=== PATIENT | male | born 1985 | race Two or more races ===

== ENCOUNTER 2019-04-13 08:59 | Emergency (ER) | payer SELFPAY ==
[~2019-04-13] VITALS: Ht 170.2 cm; Wt 85.7 kg
[2019-04-13 09:08] VITALS: BP 106/77
[2019-04-13 09:56] LABS: Urine Bacteria NONE SEEN /hpf (None Seen); Urine Blood Negative /uL (Negative); Urine Mucus FEW (None Seen); Urine Specific Gravity 1.031 (1.001-1.035); Urine WBC <1 /hpf (0 - 3)
== END 2019-04-13 11:02 | disposition home or self-care (01) ==
LOC: ER 09:07
DX: S39.011A Strain of muscle, fascia and tendon of abdomen, initial encounter (principal); X50.0XXA Overexertion from strenuous movement or load, initial encounter; Y93.89 Activity, other specified; Y99.8 Other external cause status; Y92.89 Other specified places as the place of occurrence of the external cause
CPT/HCPCS: 74176; 81001

== ENCOUNTER 2021-12-07 01:12 | Emergency (ER) | payer SELFPAY ==
[~2021-12-07] VITALS: Ht 172.7 cm; Wt 86.2 kg
[2021-12-07 01:12] VITALS: BP 119/94
== END 2021-12-07 04:34 | disposition left against medical advice (07) ==
LOC: ER 01:13
DX: H57.89 Other specified disorders of eye and adnexa (principal); H53.8 Other visual disturbances; Z53.21 Procedure and treatment not carried out due to patient leaving prior to being seen by health care provider

== ENCOUNTER 2022-10-21 02:47 | Emergency (ER) | payer MEDICAID ==
[~2022-10-21] VITALS: Ht 175.3 cm; Wt 83.9 kg
[2022-10-21 03:38] VITALS: BP 134/88
[2022-10-21 03:56] LABS: Urine Bacteria NONE SEEN /hpf (None Seen); Urine Blood Negative /uL (Negative); Urine Specific Gravity 1.013 (1.001-1.035); Urine WBC <1 /hpf (0 - 3)
== END 2022-10-21 08:01 | disposition left against medical advice (07) ==
LOC: ER 02:47
DX: K80.20 Calculus of gallbladder without cholecystitis without obstruction (principal)
CPT/HCPCS: 74176; 81001

== ENCOUNTER 2024-04-21 08:49 | Inpatient (IN) | payer MEDICAID ==
[~2024-04-21] VITALS: Ht 167.6 cm; Wt 77.1 kg
[2024-04-21 09:34] LABS: Urine Bacteria None Seen /hpf (None Seen)
[2024-04-21] MEDS: DONNATAL 5ml ORAL Elix (BELLADONNA ALK-PHENOBARB) PO ONE (09:45)
[2024-04-21 09:46] LABS: Urine Blood Negative /uL (Negative); Urine Clarity Clear (Clear); Urine Color Light-Yellow (Yellow); Urine Mucus FEW (None Seen); Urine Protein, UAD Negative (Negative); Urine Specific Gravity 1.026 (1.001-1.035); Urine Urobilinogen Normal (Negative); Urine WBC 3 /hpf (0 - 3); Urine pH 6.5 (5.0-9.0)
[2024-04-21 10:27] LABS: Basophils # (auto) 0 10 ^3/uL (0-0.2); Basophils % (auto) 0.4 % (0.0-2.0); Eosinophils # (auto) 0.1 10 ^3/uL (0-0.8); Eosinophils % (auto) 1.1 % (0.0-7.0); Hematocrit 47.3 % (41.0-53.0); Lymphocytes # (auto) 1.8 10 ^3/uL (0.4-5.4); Lymphocytes % (auto) 24.1 % (10.0-50.0); Mean Corpuscular Hgb Conc. 33.9 g/dL (32.0-36.0); Mean Corpuscular Volume 91.5 fL (80.0-100.0); Monocytes # (auto) 0.5 10 ^3/uL (0-1.3); Monocytes % (auto) 6.5 % (0.0-12.0); Neutrophils # (auto) 5.1 10 ^3/uL (1.6-8.6); Neutrophils % (auto) 67.9 % (37.0-80.0); Red Blood Cells 5.17 10^6/uL (4.5-5.90); Red Cell Distribution Width 12.8 % (11.8-14.3); White Blood Cell 7.6 10^3/uL (4.4-10.8)
[2024-04-21 10:39] LABS: Alanine Aminotransferase 49 U/L (7-40); Albumin 4.4 g/dL (3.2-4.8); Alkaline Phosphatase 113 U/L (46-116); Anion Gap 5 (5-15); Aspartate Aminotransferase 28 U/L (13-40); BUN/Creatinine Ratio 15.7 (10.0-20.0); Bilirubin, Total 0.3 mg/dL (0.2-1.0); Blood Urea Nitrogen 17 mg/dL (9-23); Calcium 10.1 mg/dL (8.7-10.4); Carbon Dioxide 30 mmol/L (20-30); Chloride 104 mmol/L (98-107); Glucose 110 mg/dL (74-106); Lipase 47 U/L (12-53); Magnesium 2.2 mg/dL (1.6-2.6); Sodium 139 mmol/L (136-145); Total Protein 7.8 g/dL (5.7-8.2)
[2024-04-21] MEDS: SODIUM CHLORIDE 0.9% 500 ML IVB ONE (11:12)
[2024-04-21] MEDS: MAALOX PLUS or MAALOX 30 ML PO ONE (11:13)
[2024-04-21] MEDS: PANTOPRAZOLE 40 MG TAB PO ONE (11:14)
[2024-04-21] MEDS: METOCLOPRAMIDE HCL 5MG/ml INJ 2ml VIAL IV ONE (11:14)
[2024-04-21] MEDS: KETOROLAC TROMETH 30 MG/ML 1ML VIAL IV ONE (11:14)
[2024-04-21 11:21] VITALS: PULSE 71; RESP 16; O2SAT 100
[2024-04-21] MEDS: cefTRIAXone 1GM/50ML D5W 50 ML IV ONE (11:38)
[2024-04-21] MEDS ORDERED: MORPHINE SULFATE INJ 2 MG/ml SYRG IV PRN (13:15)
[2024-04-21] MEDS ORDERED: DOCUSATE SOD 100 MG CAP PO PRN (13:15)
[2024-04-21] MEDS ORDERED: ONDANSETRON HCL 4 MG/2 ML VIAL IV PRN (13:15)
[2024-04-21] MEDS: SODIUM CHLORIDE 0.9% 1,000 ML IV SCH (13:20)
[2024-04-21] MEDS ORDERED: NITROGLYCERIN 0.4 MG SL TAB SL PRN (14:00)
[2024-04-21 14:41] LABS: INR 0.98 (0.9-1.15); Prothrombin Time 10.4 sec (9.3-11.8)
[2024-04-21 17:08] VITALS: BP 132/84; PULSE 60; RESP 18; TEMP 97.9; O2SAT 99
[2024-04-21 18:24] VITALS: PULSE 60; RESP 18; O2SAT 98
[2024-04-21 19:30] VITALS: PULSE 60; RESP 20; O2SAT 100
[2024-04-21 21:00] VITALS: BP 104/58; PULSE 90; RESP 20; TEMP 98.2; O2SAT 100
[2024-04-22] VITALS (8 sets, daily range): BP systolic 96–105; BP diastolic 57–72; PULSE 62–77; RESP 17–20; TEMP 97.7–99.1; O2SAT 98–100
[2024-04-22 06:22] LABS: Basophils # (auto) 0 10 ^3/uL (0-0.2); Basophils % (auto) 0.5 % (0.0-2.0); Eosinophils # (auto) 0.1 10 ^3/uL (0-0.8); Eosinophils % (auto) 1.8 % (0.0-7.0); Hematocrit 43.3 % (41.0-53.0); Hemoglobin 14.7 g/dL (13.5-17.5); Lymphocytes # (auto) 2.3 10 ^3/uL (0.4-5.4); Lymphocytes % (auto) 37.5 % (10.0-50.0); Mean Corpuscular Volume 91.1 fL (80.0-100.0); Monocytes # (auto) 0.4 10 ^3/uL (0-1.3); Neutrophils # (auto) 3.3 10 ^3/uL (1.6-8.6); Neutrophils % (auto) 54.2 % (37.0-80.0); Nucleated Red Blood Cells % 0.1 %; Red Blood Cells 4.75 10^6/uL (4.5-5.90); Red Cell Distribution Width 12.9 % (11.8-14.3); White Blood Cell 6.2 10^3/uL (4.4-10.8)
[2024-04-22 07:03] LABS: Alanine Aminotransferase 38 U/L (7-40); Albumin 3.6 g/dL (3.2-4.8); Alkaline Phosphatase 88 U/L (46-116); Anion Gap 7 (5-15); Aspartate Aminotransferase 22 U/L (13-40); BUN/Creatinine Ratio 11.2 (10.0-20.0); Bilirubin, Total 0.5 mg/dL (0.2-1.0); Blood Urea Nitrogen 10 mg/dL (9-23); Calcium 8.7 mg/dL (8.7-10.4); Carbon Dioxide 25 mmol/L (20-30); Chloride 107 mmol/L (98-107); Glucose 94 mg/dL (74-106); Potassium 4.2 mmol/L (3.5-5.1); Sodium 139 mmol/L (136-145); Total Protein 6.4 g/dL (5.7-8.2)
[2024-04-22] MEDS: PIPERACILLIN-TAZOB 3.375GM 100 ML IV ONE ×2 (14:07→22:55)
[2024-04-22] MEDS ORDERED: PIPERACILLIN-TAZOB 3.375GM 100 ML IV SCH (22:00)
[2024-04-22] MEDS ORDERED: MORPHINE SULFATE INJ 2 MG/ml SYRG IV PRN (22:15)
[2024-04-22] MEDS ORDERED: DOCUSATE SOD 100 MG CAP PO PRN (22:15)
[2024-04-22] MEDS ORDERED: NITROGLYCERIN 0.4 MG SL TAB SL PRN (22:15)
[2024-04-22] MEDS: SODIUM CHLORIDE 0.9% 1,000 ML IV SCH (22:15)
[2024-04-22] MEDS ORDERED: ONDANSETRON HCL 4 MG/2 ML VIAL IV PRN (22:15)
[2024-04-23 01:00] VITALS: BP 110/69; PULSE 64; RESP 18; TEMP 97.6; O2SAT 98
[2024-04-23 05:00] VITALS: BP 104/60; PULSE 69; RESP 17; TEMP 97.9; O2SAT 99
[2024-04-23] MEDS: PIPERACILLIN-TAZOB 3.375GM 100 ML IV SCH (05:26)
[2024-04-23 08:00] VITALS: PULSE 100; RESP 17; O2SAT 100
[2024-04-23] MEDS ORDERED: PROPOFOL 10 MG/ML 20 ML IV ONE (08:09)
[2024-04-23] MEDS ORDERED: SODIUM CHLORIDE LOCK 0 ML ONE (08:09)
[2024-04-23] MEDS ORDERED: DexAMETHasone SOD PHOS 10MG/1ML VIAL INJ ONE (08:09)
[2024-04-23] MEDS ORDERED: GLYCOPYRROLATE 0.2 MG/ML 1ML VIAL ONE (08:09)
[2024-04-23] MEDS ORDERED: MIDAZOLAM HCL 2MG/2ML 2ml VIAL (1mg/ml) ONE (08:09)
[2024-04-23] MEDS ORDERED: LIDOCAINE 1% INJ PF 5ML AMP ONE (08:09)
[2024-04-23] MEDS ORDERED: LIDOCAINE HCL 2% TOP JELLY 5ML TOP ONE (08:09)
[2024-04-23] MEDS ORDERED: ROCURONIUM 10MG/ML 10ML VIAL IV ONE (08:09)
[2024-04-23] MEDS ORDERED: NEOSTIGMINE 1 MG/ML INJ (10mg/10ML VIAL) ONE (08:09)
[2024-04-23] MEDS ORDERED: fentaNYL CITRATE 100 MCG/2 ML VL ONE (08:09)
[2024-04-23] MEDS ORDERED: KETAMINE 50mg/ML 1ml syringe ONE (08:09)
[2024-04-23] MEDS ORDERED: ONDANSETRON HCL 4 MG/2 ML VIAL ONE (08:09)
[2024-04-23] MEDS ORDERED: MEPERIDINE HCL (50 MG/ML) 1 ML VIAL ONE (08:09)
[2024-04-23 09:00] VITALS: BP 106/79; PULSE 100; RESP 17; TEMP 98.1; O2SAT 100
== END 2024-04-23 11:20 | disposition left against medical advice (07) ==
LOC: ER 08:49 → OVERFLOW 13:48 → TELE-E-ADS 17:10 → EAST 04-22 04:23 → UNDODISIN 04-22 15:25
PROVIDERS: ADMIT Student in an Organized Health Care Education/Training Program; ATTEND Emergency Medicine
DX: K80.00 Calculus of gallbladder with acute cholecystitis without obstruction (principal); F17.200 Nicotine dependence, unspecified, uncomplicated; Z53.29 Procedure and treatment not carried out because of patient's decision for other reasons
CPT/HCPCS: 36415; 76705; 80053; 81001; 83690; 83735; 85025; 85610; 86850; 86900; 86901; G0378; J1100; J1885; J2250; J2405; J2543; J2704

== ENCOUNTER 2024-10-10 04:09 | Emergency (ER) | payer MEDICAID ==
[~2024-10-10] VITALS: Ht 172.7 cm; Wt 76.6 kg
[2024-10-10] MEDS ORDERED: SODIUM CHLORIDE 0.9% 1,000 ML IV ONE (04:45)
[2024-10-10] MEDS ORDERED: MORPHINE SULFATE 4 MG/ML SYR/VIAL IV ONE (04:45)
[2024-10-10] MEDS ORDERED: ONDANSETRON HCL 4 MG/2 ML VIAL IV ONE (04:45)
[2024-10-10] MEDS ORDERED: PANTOPRAZOLE 40 MG/10 ML VIAL INJ IV ONE (04:45)
--- NOTE | 2024-10-10 04:53 | ED.PDOC ---
History of Present Illness HPI Comments 39 y/o M presents with c/o non-radiating, epigastric abdominal pain and nausea that began at 0330, today. Patient is a [place] speaker and endorses on symptoms onset being sudden and unprovoked. He comments on having similar pain in the past with "gallstones," with most last episode taking place 1x month ago. Patient reports no recent strenuous activities, injuries, spoiled or irritable food intake, or any further relevant or pertinent information. He denies having any vomiting, diarrhea, fever, chills, urinary symptoms, or other associated symptoms or modifiers at this time. Per previous hospital discharge summary report on 04/23/24, patient has a Hx of acute cholecystitis d/t cholelithiasis and tobacco use. Chief Complaint: Abdominal Pain Time Seen by MD: 04:35 Primary Care Provider: ADALBERTO Reviewed Notes: Nurses Notes, Medications, Allergies Allergies: Coded Allergies: NO KNOWN ALLERGIES (Unverified , 04/13/19) Home Meds No Active Prescriptions or Reported Meds Information Source: Patient Mode of Arrival: Ambulatory Severity: Moderate Timing: Hours Duration: Since onset Prehospital treatment: None Past Medical History PAST MEDICAL HISTORY: Gallstones Past Medical History (Other): acute cholecystitis due to cholelithiasis Surgical History: Denies all surgeries Family History Family History: Unknown Social History Smoker: Cigarettes Alcohol: Denies ETOH Use Drugs: Denies Drug Use Lives In: Home Gastrointestinal: reports: abdominal pain, nausea All Other Systems: Reviewed and Negative (negative unless otherwise stated above or in HPI) Physical Exam General Appearance: No Apparent Distress, Normal HEENT: Normal ENT Inspection, Pharynx Normal, TMs Normal Neck: Full Range of Motion, Non-Tender, Normal, Normal Inspection Respiratory: Chest Non-Tender, Lungs Clear, No Accessory Muscle Use, No Respiratory Distress, Normal Breath Sounds Cardiovascular: No Edema, No JVD, No Murmur, No Gallop, Normal Peripheral Pulses, Regular Rate/Rhythm Breast Exam: Deferred Gastrointestinal: Epigastric (tenderness), No Organomegaly, No Pulsatile Mass, Normal Bowel Sounds, Soft, Tenderness (epigastric region ) Genitalia: Deferred Pelvic: Deferred Rectal: Deferred Extremities: No calf tenderness, Normal capillary refill, Normal inspection, Normal range of motion, Non-tender, No pedal edema Musculoskeletal : Apperance: Normal Neurologic: Alert, mower operator II-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 Was a procedure done?: No Differential Dx Considerations may include: cholelithiasis, cholecystitis, GERD, PUD, gastritis, gastroenteritis, spoiled food, viral syndrome, acute abdomen X-Ray, Labs, Meds, VS Vital Signs Date Time Temp Pulse Resp B/P (MAP) Pulse Ox O2 Delivery O2 Flow Rate FiO2 10/10/24 05:09 97.5 75 18 133/91 (105) 98 97.5 10/10/24 04:28 97.6 86 20 141/94 (110) 99 Lab Test 10/10/24 05:33 Range/Units White Blood Count 6.7 4.4-10.8 10^3/uL Red Blood Count 4.87 4.5-5.90 10^6/uL Hemoglobin 15.2 13.5-17.5 g/dL Hematocrit 43.8 41.0-53.0 % Mean Corpuscular Volume 90.1 80.0-100.0 fL Mean Corpuscular Hemoglobin 31.2 28.0-32.0 pg Mean Corpuscular Hemoglobin Concent 34.6 32.0-36.0 g/dL Red Cell Distribution Width 13.2 11.8-14.3 % Platelet Count 299 140-450 10^3/uL Mean Platelet Volume 6.8 L 6.9-10.8 fL Neutrophils (%) (Auto) 70.0 37.0-80.0 % Lymphocytes (%) (Auto) 21.9 10.0-50.0 % Monocytes (%) (Auto) 6.4 0.0-12.0 % Eosinophils (%) (Auto) 1.2 0.0-7.0 % Basophils (%) (Auto) 0.5 0.0-2.0 % Neutrophils # (Auto) 4.7 1.6-8.6 10 ^3/uL Lymphocytes # (Auto) 1.5 0.4-5.4 10 ^3/uL Monocytes # (Auto) 0.4 0-1.3 10 ^3/uL Eosinophils # (Auto) 0.1 0-0.8 10 ^3/uL Basophils # (Auto) 0 0-0.2 10 ^3/uL Nucleated Red Blood Cells 0.0 % Sodium Level 136 136-145 mmol/L Potassium Level 3.8 3.5-5.1 mmol/L Chloride Level 103 98-107 mmol/L Carbon Dioxide Level 30 20-31 mmol/L Anion Gap 3 L 5-15 Blood Urea Nitrogen 17 9-23 mg/dL Creatinine 1.02 0.700-1.30 mg/dL Glomerular Filtration Rate Calc 95 >90 mL/min BUN/Creatinine Ratio 16.7 10.0-20.0 Serum Glucose 120 H 74-106 mg/dL Calcium Level 9.4 8.7-10.4 mg/dL Total Bilirubin 0.4 0.2-1.0 mg/dL Aspartate Amino Transferase (AST) 36 13-40 U/L Alanine Aminotransferase (ALT) 42 H 7-40 U/L Alkaline Phosphatase 110 46-116 U/L Total Protein 7.2 5.7-8.2 g/dL Albumin 4.3 3.2-4.8 g/dL Lipase 41 12-53 U/L [place] [id number] Ph: [phone] DIAGNOSTIC IMAGING Diagnostic Imaging Report : [id number] Signed PATIENT: ISAAC MCCLAIN ACCT: [id number] UNIT: [id number] : 1985 LOC: ER ROOM / BED: / AGE / SEX: 39 / M ADM STATUS: REG ER SERVICE 6 ORDERING PHYSICIAN: MEGAN ARRIAGA MD PROCEDURE(s): CXR2 - CHEST TWO VIEWS ROUTINE REASON: epigastric pain ORDER NUMBER(s): [id number], ACCESSION NUMBER(s): [id number] CHEST TWO VIEWS ROUTINE CLINICAL HISTORY: epigastric pain COMPARISON: None TECHNIQUE: Frontal and lateral view of the chest was obtained FINDINGS: Lines and Tubes: None Lungs: No focal consolidation. Pleura: No effusion. No pneumothorax. Cardiomediastinal contours: Unremarkable Bones: No acute osseous abnormality. IMPRESSION: 1. No acute cardiopulmonary disease. ATED BY: ANAHI RIVAS MD DICTATED DATE/TIME: 10/10/24 045 SIGNED BY: ANAHI RIVAS MD SIGNED DATE/TIME: 10/10/24 0458 CC: Time of 1ST Reevaluation: 05:05 Reevaluation 1ST: Unchanged Patient Education/Counseling: Diagnosis, Treatment Family Education/Counseling: No Family Present Additional Information I reviewed the following notes from patient's past medical encounters: ED physician note on 10/21/22 and 04/21/24 and hospital admission discharge summary report on 04/23/24 The following tests were ordered, and results were reviewed by me: CXR, lipase, CMP. CBC I reviewed and agreed with the following test results read by other providers: CXR I discussed treatment and results with medical personnel Departure 1 Departure Time of Disposition: 05:38 (Patient presented with abdominal pain that was concerning for possible appendicits, gastritis, cholecystitis, colitis, gastroenteritis, sbo, or orther possible surgical emergency. Data: 1. I ordered and reviewed the result of at least 3 labs including a CBC, BMP, and Urinalysis. 2. I independently interpreted the following tests: Ultrasound is concerning for acute cholecystitis .Risk:This patient has a high risk of morbidity due to further diagnostic testing or treatment and may suffer from an acute abdominal process disorder. Workup reveals acute cholecystitis and patient should be admitted for further workup. and possible expert consultation. Patient appare ntly eloped) Impression: Primary Impression: Acute cholecystitis Additional Impression: Intractable abdominal pain Disposition: 07 LEFT AWOL/ELOPED Condition: Guarded e-Prescriptions No Active Prescriptions or Reported Meds Critical Care Note Critical Care Time?: Yes Critical care comment: Intractable abdominal pain with the acute cholecystitis Authorized and Performed by: Megan Arriaga MD Total critical care time: Approximately 39 minutes Due to a high probability of clinically significant, life threatening deterioration, the patient required my highest level of preparedness to intervene emergently and I personally spent this critical care time directly and personally managing the patient. This critical care time included obtaining a history; examining the patient; pulse oximetry; ordering and review of studies; arranging urgent treatment with development of a management plan; evaluation of patient's response to treatment; frequent reassessment; and, discussions with other providers. This critical care time was performed to assess and manage the high probability of imminent, life-threatening deterioration that could result in multi-organ failure. It was exclusive of separately billable procedures and treating other patients and teaching time. Please see my other sections and the rest of the note for further information on patient assessment and treatment. Stability Stability form required: No Heart Score Heart Score: Heart Score Response (Comments) Value History N/A 0 EKG N/A 0 Age N/A 0 Risk Factors N/A 0 Troponin N/A 0 Total 0 I personally scribed for MEGAN ARRIAGA MD ([email or web address]) on 10/10/24 at 04:53. Electronically submitted by Da Montejo ([email or web address]). I personally scribed for MEGAN ARRIAGA MD ([email or web address]) on 10/10/24 at 05:28. Electronically submitted by Da Montejo ([email or web address]). MEGAN ARRIAGA MD Oct 10, 2024 04:53
--- NOTE | 2024-10-10 05:01 | DVH ---
XY CHEST TWO VIEWS ROUTINE CLINICAL HISTORY: epigastric pain COMPARISON: None TECHNIQUE: Frontal and lateral view of the chest was obtained FINDINGS: Lines and Tubes: None Lungs: No focal consolidation. Pleura: No effusion. No pneumothorax. Cardiomediastinal contours: Unremarkable Bones: No acute osseous abnormality. IMPRESSION: 1. No acute cardiopulmonary disease.
[2024-10-10 05:09] VITALS: BP 133/91; PULSE 75; RESP 18; TEMP 97.5; O2SAT 98
[2024-10-10 05:51] LABS: Basophils # (auto) 0 10 ^3/uL (0-0.2); Basophils % (auto) 0.5 % (0.0-2.0); Eosinophils # (auto) 0.1 10 ^3/uL (0-0.8); Eosinophils % (auto) 1.2 % (0.0-7.0); Hematocrit 43.8 % (41.0-53.0); Hemoglobin 15.2 g/dL (13.5-17.5); Lymphocytes # (auto) 1.5 10 ^3/uL (0.4-5.4); Lymphocytes % (auto) 21.9 % (10.0-50.0); Mean Corpuscular Hemoglobin 31.2 pg (28.0-32.0); Mean Corpuscular Hgb Conc. 34.6 g/dL (32.0-36.0); Mean Corpuscular Volume 90.1 fL (80.0-100.0); Monocytes # (auto) 0.4 10 ^3/uL (0-1.3); Monocytes % (auto) 6.4 % (0.0-12.0); Neutrophils # (auto) 4.7 10 ^3/uL (1.6-8.6); Platelet Count (auto) 299 10^3/uL (140-450); Red Blood Cells 4.87 10^6/uL (4.5-5.90); Red Cell Distribution Width 13.2 % (11.8-14.3); White Blood Cell 6.7 10^3/uL (4.4-10.8)
[2024-10-10 06:12] LABS: Albumin 4.3 g/dL (3.2-4.8); Alkaline Phosphatase 110 U/L (46-116); Anion Gap 3 (5-15); Aspartate Aminotransferase 36 U/L (13-40); BUN/Creatinine Ratio 16.7 (10.0-20.0); Bilirubin, Total 0.4 mg/dL (0.2-1.0); Blood Urea Nitrogen 17 mg/dL (9-23); Calcium 9.4 mg/dL (8.7-10.4); Carbon Dioxide 30 mmol/L (20-31); Chloride 103 mmol/L (98-107); Lipase 41 U/L (12-53); Potassium 3.8 mmol/L (3.5-5.1); Sodium 136 mmol/L (136-145); Total Protein 7.2 g/dL (5.7-8.2)
[2024-10-10 06:20] LABS: Alanine Aminotransferase 42 U/L (7-40); Glucose 120 mg/dL (74-106)
--- NOTE | 2024-10-10 06:47 | DVH ---
INDICATION: ruq pain TECHNIQUE: Multiple real-time sonographic images of the abdomen were obtained. COMPARISON: US GALLBLADDER on DOS: 04/21/24 FINDINGS: The liver is homogenous in echogenicity. The liver measures 17.3 cm. No intrahepatic bilia ry ductal dilatation is noted. The gallbladder wall measures 0.7 cm. Common tail artifact noted. There are gallstones. The common duct measures 0.4 cm and is unremarkable. No pericholecystic fluid is noted. Positive sonographic M urphy's sign. The right kidney measures 10.7 cm. No hydronephrosis. The pancreas is not well visualized due to obscuration from bowel gas. The visualized portions of the IVC and aorta are grossly unremarkable. No free fluid in the right upper quadrant. IMPRESSION: 1. Gallstones, gallbladder wall thickening and positive Colon's sign suspicious for acute cholecysti tis. Additionally, Adenomyomatosis of the gallbladder. 2. Normal sonographic appearance of the liver and right kidney.
== END 2024-10-10 07:15 | disposition left against medical advice (07) ==
LOC: ER 04:09
DX: R10.13 Epigastric pain (principal); R11.0 Nausea; F17.210 Nicotine dependence, cigarettes, uncomplicated
CPT/HCPCS: 36415; 71046; 76705; 80053; 83690; 85025

== ENCOUNTER 2024-10-10 14:56 | Inpatient (IN) | payer MEDICAID ==
[~2024-10-10] VITALS: Ht 172.7 cm; Wt 84.0 kg
--- NOTE | 2024-10-10 15:35 | ED.PDOC ---
GI ASSESSMENT HPI Comments 39 y/o M with PMHX of cholelithiasis presents to the ED for CC of abdominal pain. Patient states that he has been experiencing epigastric abdominal pain with associated symptoms of nausea since 0230 today (10/09/24). Patient comments on current 9/10 pain that worsens with light exertion. Patient states on having similar symptoms in the past due to cholelithiasis; patient refused removal of the gallbladder in 2023. Patient was seen at [facility] today (10/10/24) and [facility]. Patient smokes tobacco and marijuana and takes methamphetamines; denies alcohol consumption. Patient denies fever, chills, body-aches, or diarrhea. No other symptoms or modifying factors at this time. Chief Complaint: Abdominal Pain Time Seen by MD: 15:20 Primary Care Provider: ADALBERTO Reviewed Notes: Nurses Notes, Medications, Allergies Allergies: Coded Allergies: NO KNOWN ALLERGIES (Unverified , 04/13/19) Home Meds No Active Prescriptions or Reported Meds Information Source: Patient Mode of Arrival: Ambulatory Timing: Hours Duration: Since onset Prehospital treatment: None Quality: Cramping Vomitus: None Stool: Normal Severity: Mild Recent: None Recent Hx of: None Pain Location: Epigastric Modifying Factors: Nothing Associated sign and symptoms: Nausea Past Medical History PAST MEDICAL HISTORY: Gallstones Surgical History: Denies all surgeries Family History Family History: Unknown Social History Smoker: Cigarettes Alcohol: Denies ETOH Use Drugs: Marijuana, Methamphetamine Lives In: Home Constitutional: denies: chills, diaphoresis, fatigue, fever, malaise, sweats, weakness, others EENTM: denies: blurred vision, double vision, ear bleeding, ear discharge, ear drainage, ear pain, ear ringing, eye pain, eye redness, hearing loss, mouth pain, mouth swelling, nasal discharge, nose bleeding, nose congestion, nose pain, photophobia, tearing, throat pain, throat swelling, voice changes, others Respiratory: denies: cough, hemoptysis, orthopnea, SOB at rest, shortness of breath, SOB with excertion, stridor, wheezing, others Cardiovascular: denies: chest pain, dizzy spells, diaphoresis, Dyspnea on exertion, edema, irregular heart beat, left arm pain, lightheadedness, palpitations, PND, syncope, others Gastrointestinal: reports: abdominal pain, nausea; denies: abdomen distended, blood streaked bowels, constipated, diarrhea, dysphagia, difficulty swallowing, hematemesis, melena, poor appetite, poor fluid intake, rectal bleeding, rectal pain, vomiting, others Genitourinary: denies: burning, dysuria, flank pain, frequency, hematuria, incontinence, penile discharge, penile sore, pain, testicle pain, testicle swelling, urgency, others Neurological: denies: dizziness, fainting, headache, left sided numbness, left sided weakness, numbness, paresthesia, pre-existing deficit, right sided numbness, right sided weakness, seizure, speech problems, tingling, tremors, weakness, others Musculoskeletal: denies: back pain, gout, joint pain, joint swelling, muscle pain, muscle stiffness, neck pain, others Integumetry: denies: bruises, change in color, change in hair/nails, dryness, laceration, lesions, lumps, rash, wounds, others Allergic/Immunocompromised: denies: Difficulty Healing, Frequent Infections, Hives, Itching, others Hematologic/Lymphatic: denies: anemia, blood clots, easy bleeding, easy bruising, swollen glands, others Endocrine: denies: excessive hunger, excessive sweating, excessive thirst, excessive urination, flushing, intolerance to cold, intolerance to heat, unexplained weight gain, unexplained weight loss, others Psychiatric: denies: anxiety, bipolar disorder, depression, hopeless, panic d isorder, schizophrenia, sleepless, suicidal, others All Other Systems: Reviewed and Negative Physical Exam General Appearance: Moderate Distress HEENT: Normal ENT Inspection, Pharynx Normal, TMs Normal Neck: Full Range of Motion, Non-Tender, Normal, Normal Inspection Respiratory: Chest Non-Tender, Lungs Clear, No Accessory Muscle Use, No Respiratory Distress, Normal Breath Sounds Cardiovascular: No Edema, No JVD, No Murmur, No Gallop, Normal Peripheral Pulses, Regular Rate/Rhythm Breast Exam: Deferred Gastrointestinal: Epigastric, No Organomegaly, No Pulsatile Mass, Normal Bowel Sounds, Soft, Tenderness Genitalia: Deferred Pelvic: Deferred Rectal: Deferred Extremities: No calf tenderness, Normal capillary refill, Normal inspection, Normal range of motion, Non-tender, No pedal edema Musculoskeletal : Apperance: Normal Neurologic: Alert, professor 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 Was a procedure done?: No GI differential Dx Differential Diagnosis: Cholangitis, Cholecystitis, Gastritis/PUD, Gastroe nteritis, Drug toxicity, Electrolyte Imbalance, Food Poisoning, Bacterial, Viral X-Ray, Labs, Meds, VS Vital Signs Date Time Temp Pulse Resp B/P (MAP) Pulse Ox O2 Delivery O2 Flow Rate FiO2 10/10/24 15:17 97.9 102 18 124/77 (93) 97 Lab Test 10/10/24 16:12 10/10/24 16:02 Range/Units Urine Color Yellow Yellow Urine Clarity Clear Clear Urine pH 5.5 5.0-9.0 Urine Specific [place] 1.027 1.001-1.035 Urine Protein Trace H Negative Urine Ketones Trace Negative Urine Blood Negative Negative /uL Urine Nitrite Negative Negative Urine Bilirubin Negative Negative Urine Urobilinogen Normal Negative mg/dL Urine Leukocyte Esterase Negative Negative /uL Urine RBC 1 0 - 3 /hpf Urine Microscopic WBC 1 0-3 /HPF Urine Squamous Epithelial Cells Few <5 /hpf Urine Bacteria None seen None Seen /hpf Urine Mucus Few None Seen Urine Glucose Normal Normal mg/dL White Blood Count 6.3 4.4-10.8 10^3/uL Red Blood Count 4.85 4.5-5.90 10^6/uL Hemoglobin 14.6 13.5-17.5 g/dL Hematocrit 43.9 41.0-53.0 % Mean Corpuscular Volume 90.4 80.0-100.0 fL Mean Corpuscular Hemoglobin 30.1 28.0-32.0 pg Mean Corpuscular Hemoglobin Concent 33.3 32.0-36.0 g/dL Red Cell Distribution Width 13.0 11.8-14.3 % Platelet Count 274 140-450 10^3/uL Mean Platelet Volume 6.8 L 6.9-10.8 fL Neutrophils (%) (Auto) 67.0 37.0-80.0 % Lymphocytes (%) (Auto) 23.8 10.0-50.0 % Monocytes (%) (Auto) 6.9 0.0-12.0 % Eosinophils (%) (Auto) 1.8 0.0-7.0 % Basophils (%) (Auto) 0.5 0.0-2.0 % Neutrophils # (Auto) 4.2 1.6-8.6 10 ^3/uL Lymphocytes # (Auto) 1.5 0.4-5.4 10 ^3/uL Monocytes # (Auto) 0.4 0-1.3 10 ^3/uL Eosinophils # (Auto) 0.1 0-0.8 10 ^3/uL Basophils # (Auto) 0 0-0.2 10 ^3/uL Nucleated Red Blood Cells 0.0 % Sodium Level Pending Potassium Level Pending Chloride Level Pending Carbon Dioxide Level Pending Anion Gap Pending Blood Urea Nitrogen Pending Creatinine Pending Glomerular Filtration Rate Calc Pending BUN/Creatinine Ratio Pending Serum Glucose Pending Calcium Level Pending Total Bilirubin Pending Aspartate Amino Transferase (AST) Pending Alanine Aminotransferase (ALT) Pending Alkaline Phosphatase Pending Total Protein Pending Albumin Pending Lipase Pending The patient's CBC is within normal limits The patient had an ultrasound done of the gallbladder earlier today which showed cholelithiasis with possible cholecystitis The patient was being given Protonix 40 mg IV push The patient was being admitted at this time. The patient was intractable abdominal pain with a possible cholecystitis A GI consult will be obtained. Images Reviewed?: Images reviewed and evaluated by me Time of 1ST Reevaluation: 15:50 Reevaluation 1ST: Unchanged Patient Education/Counseling: Diagnosis, Treatment, Prognosis Family Education/Counseling: No Family Present Departure 1 Departure Time of Disposition: 16:37 Impression: Primary Impression: Intractable abdominal pain Additional Impression: Acute cholecystitis Disposition: 09 ADMITTED INPATIENT Admit to: Med Surg Condition: Fair e-Prescriptions No Active Prescriptions or Reported Meds Critical Care Note Critical Care Time?: No Stability Stability form required: Yes Unstable for transfer: ED Physician Assesment (Clinical assesment) Heart Score Heart Score: Heart Score Response (Comments) Value History N/A 0 EKG N/A 0 Age N/A 0 Risk Factors N/A 0 Troponin N/A 0 Total 0 I personally scribed for ULISSES RABAGO MD ([email or web address]) on 10/10/24 at 15:35. Electronically submitted by Araceli Waite ([email or web address]). I personally scribed for ULISSES RABAGO MD ([email or web address]) on 10/10/24 at 15:42. Electronically submitted by Araceli Waite ([email or web address]). ULISSES RABAGO MD Oct 10, 2024 15:35
[2024-10-10 16:13] LABS: Urine Bacteria None Seen /hpf (None Seen)
[2024-10-10 16:17] LABS: Basophils # (auto) 0 10 ^3/uL (0-0.2); Basophils % (auto) 0.5 % (0.0-2.0); Eosinophils # (auto) 0.1 10 ^3/uL (0-0.8); Eosinophils % (auto) 1.8 % (0.0-7.0); Hematocrit 43.9 % (41.0-53.0); Hemoglobin 14.6 g/dL (13.5-17.5); Lymphocytes # (auto) 1.5 10 ^3/uL (0.4-5.4); Lymphocytes % (auto) 23.8 % (10.0-50.0); Mean Corpuscular Hemoglobin 30.1 pg (28.0-32.0); Mean Corpuscular Hgb Conc. 33.3 g/dL (32.0-36.0); Mean Corpuscular Volume 90.4 fL (80.0-100.0); Monocytes # (auto) 0.4 10 ^3/uL (0-1.3); Monocytes % (auto) 6.9 % (0.0-12.0); Neutrophils # (auto) 4.2 10 ^3/uL (1.6-8.6); Platelet Count (auto) 274 10^3/uL (140-450); Red Blood Cells 4.85 10^6/uL (4.5-5.90); White Blood Cell 6.3 10^3/uL (4.4-10.8)
[2024-10-10 16:27] LABS: Urine Blood Negative /uL (Negative); Urine Clarity Clear (Clear); Urine Color Yellow (Yellow); Urine Mucus FEW (None Seen); Urine Protein, UAD TRACE (Negative); Urine Specific Gravity 1.027 (1.001-1.035); Urine Squamous Epithelial Cell FEW /hpf (<5); Urine Urobilinogen Normal (Negative); Urine WBC 1 /HPF (0-3); Urine pH 5.5 (5.0-9.0)
[2024-10-10 16:41] LABS: Albumin 4.3 g/dL (3.2-4.8); Alkaline Phosphatase 104 U/L (46-116); Anion Gap 4 (5-15); Aspartate Aminotransferase 32 U/L (13-40); BUN/Creatinine Ratio 14.8 (10.0-20.0); Bilirubin, Total 0.4 mg/dL (0.2-1.0); Blood Urea Nitrogen 17 mg/dL (9-23); Carbon Dioxide 30 mmol/L (20-31); Chloride 107 mmol/L (98-107); Glucose 72 mg/dL (74-106); Lipase 36 U/L (12-53); Potassium 3.7 mmol/L (3.5-5.1); Sodium 141 mmol/L (136-145); Total Protein 7.1 g/dL (5.7-8.2)
[2024-10-10 16:42] LABS: Alanine Aminotransferase 40 U/L (7-40)
[2024-10-10] MEDS: SODIUM CHLORIDE 0.9% 500 ML IVB ONE (16:45)
[2024-10-10] MEDS: ONDANSETRON HCL 4 MG/2 ML VIAL IV ONE (16:59)
[2024-10-10] MEDS: PANTOPRAZOLE 40 MG/10 ML VIAL INJ IV ONE (16:59)
[2024-10-10] MEDS ORDERED: ONDANSETRON HCL 4 MG/2 ML VIAL IV PRN (19:45)
[2024-10-10 20:16] LABS: INR 0.98 (0.9-1.15); Partial Thromboplastin Time 27.1 SEC (24.5-34.5); Prothrombin Time 10.4 sec (9.3-11.8)
[2024-10-10] MEDS: cefTRIAXone 1GM/50ML D5W 50 ML IV ONE (21:00)
--- NOTE | 2024-10-10 21:33 | DVHHP2 ---
History of Present Illness Reason for Visit: Abdominal pain History of Present Illness 39-year-old male presents for evaluation of abdominal pain. Patient reports being diagnosed with cholecystitis yesterday but decided to leave against medical advice. Today he returns with complaints of constant epigastric abdominal pain that radiates occasionally to his right upper quadrant with associated nausea and vomiting. With denies fever or chills. Denies diarrhea. No other acute complaints reported. Past Medical History Gallstones Past Surgical History Denies Family History Noncontributory Smoke: <1 pack per day ALCOHOL: none Drugs: Marijuana Lives: with Family Review of Systems Review of Systems Review of systems are currently negative otherwise addressed in HPI. Allergies: Coded Allergies: NO KNOWN ALLERGIES (Unverified , 04/13/19) Medications Current Medications Medications Dose Ordered Sig/Sinai Route Start Time Stop Time Status Last Admin Dose Admin Ceftriaxone Sodium 50 ml @ 100 mls/hr DAILY@09 IV 10/11/24 09:00 Metronidazole 100 ml @ 100 mls/hr Q8HR IV 10/10/24 22:00 Ondansetron HCl 4 mg Q4HP PRN IV 10/10/24 19:45 Morphine Sulfate 2 mg Q4HPRN PRN IV 10/10/24 19:45 Exam Vital Signs Vital Signs Date Time Temp Pulse Resp B/P (MAP) Pulse Ox O2 Delivery O2 Flow Rate FiO2 10/10/24 16:46 94 12 99 Room Air 10/10/24 16:46 98.2 94/35 (54) 98.2 Exam Gen: 39-year-old male in mild distress Skin: Warm, dry, normal color and texture, no rash. HEENT: Normocephalic atraumatic, mucous membranes moist and pink. Neck: Cervical and supraclavicular nodes normal without enlargement, trachea is midline, thyroid gland is normal without masses. Pulmonary: Clear to auscultation and percussion bilaterally. Cardiac: Regular rate and rhythm. No murmur Abdomen: Soft, epigastric pain, nondistended, bowel sounds present all 4 quadrants, no guarding, no rigidity, no organomegaly. Extremities: No cyanosis, clubbing, no edema Neuro: Cranial nerves II through XII grossly intact, normal affect and speech, no focal motor deficits. Labs/Xrays ORDERING PHYSICIAN: MEGAN ARRIAGA MD PROCEDURE(s): CXR2 - CHEST TWO VIEWS ROUTINE REASON: epigastric pain ORDER NUMBER(s): [id number], ACCESSION NUMBER(s): [id number] CHEST TWO VIEWS ROUTINE CLINICAL HISTORY: epigastric pain COMPARISON: None TECHNIQUE: Frontal and lateral view of the chest was obtained FINDINGS: Lines and Tubes: None Lungs: No focal consolidation. Pleura: No effusion. No pneumothorax. Cardiomediastinal contours: Unremarkable Bones: No acute osseous abnormality. IMPRESSION: 1. No acute cardiopulmonary disease. RING PHYSICIAN: MEGAN ARRIAGA MD PROCEDURE(s): GBUS - GALLBLADDER REASON: ruq pain ORDER NUMBER(s): [id number], ACCESSION NUMBER(s): [id number] INDICATION: ruq pain TECHNIQUE: Multiple real-time sonographic images of the abdomen were obtained. COMPARISON: US GALLBLADDER on DOS: 04/21/24 FINDINGS: The liver is homogenous in echogenicity. The liver measures 17.3 cm. No intrahepatic biliary ductal dilatation is noted. The gallbladder wall measures 0.7 cm. Common tail artifact noted. There are gallstones. The common duct measures 0.4 cm and is unremarkable. No pericholecystic fluid is noted. Positive sonographic Colon's sign. The right kidney measures 10.7 cm. No hydronephrosis. The pancreas is not well visualized due to obscuration from bowel gas. The visualized portions of the IVC and aorta are grossly unremarkable. No free fluid in the right upper quadrant. IMPRESSION: 1. Gallstones, gallbladder wall thickening and positive Colon's sign suspicious for acute cholecystitis. Additionally, Adenomyomatosis of the gallbladder. 2. Normal sonographic appearance of the liver and right kidney. Labs Test 10/10/24 16:12 10/10/24 16:02 Range/Units Urine Color Yellow Yellow Urine Clarity Clear Clear Urine pH 5.5 5.0-9.0 Urine Specific [place] 1.027 1.001-1.035 Urine Protein Trace H Negative Urine Ketones Trace Negative Urine Blood Negative Negative /uL Urine Nitrite Negative Negative Urine Bilirubin Negative Negative Urine Urobilinogen Normal Negative mg/dL Urine Leukocyte Esterase Negative Negative /uL Urine RBC 1 0 - 3 /hpf Urine Microscopic WBC 1 0-3 /HPF Urine Squamous Epithelial Cells Few <5 /hpf Urine Bacteria None seen None Seen /hpf Urine Mucus Few None Seen Urine Glucose Normal Normal mg/dL White Blood Count 6.3 4.4-10.8 10^3/uL Red Blood Count 4.85 4.5-5.90 10^6/uL Hemoglobin 14.6 13.5-17.5 g/dL Hematocrit 43.9 41.0-53.0 % Mean Corpuscular Volume 90.4 80.0-100.0 fL Mean Corpuscular Hemoglobin 30.1 28.0-32.0 pg Mean Corpuscular Hemoglobin Concent 33.3 32.0-36.0 g/dL Red Cell Distribution Width 13.0 11.8-14.3 % Platelet Count 274 140-450 10^3/uL Mean Platelet Volume 6.8 L 6.9-10.8 fL Neutrophils (%) (Auto) 67.0 37.0-80.0 % Lymphocytes (%) (Auto) 23.8 10.0-50.0 % Monocytes (%) (Auto) 6.9 0.0-12.0 % Eosinophils (%) (Auto) 1.8 0.0-7.0 % Basophils (%) (Auto) 0.5 0.0-2.0 % Neutrophils # (Auto) 4.2 1.6-8.6 10 ^3/uL Lymphocytes # (Auto) 1.5 0.4-5.4 10 ^3/uL Monocytes # (Auto) 0.4 0-1.3 10 ^3/uL Eosinophils # (Auto) 0.1 0-0.8 10 ^3/uL Basophils # (Auto) 0 0-0.2 10 ^3/uL Nucleated Red Blood Cells 0.0 % Prothrombin Time 10.4 9.3-11.8 sec Prothrombin Time INR 0.98 0.9-1.15 Activated Partial Thromboplast Time 27.1 24.5-34.5 SEC Sodium Level 141 # 136-145 mmol/L Potassium Level 3.7 3.5-5.1 mmol/L Chloride Level 107 98-107 mmol/L Carbon Dioxide Level 30 20-31 mmol/L Anion Gap 4 L 5-15 Blood Urea Nitrogen 17 9-23 mg/dL Creatinine 1.15 0.700-1.30 mg/dL Glomerular Filtration Rate Calc 82 >90 mL/min BUN/Creatinine Ratio 14.8 10.0-20.0 Serum Glucose 72 L 74-106 mg/dL Calcium Level 10.0 8.7-10.4 mg/dL Total Bilirubin 0.4 0.2-1.0 mg/dL Aspartate Amino Transferase (AST) 32 13-40 U/L Alanine Aminotransferase (ALT) 40 7-40 U/L Alkaline Phosphatase 104 46-116 U/L Total Protein 7.1 5.7-8.2 g/dL Albumin 4.3 3.2-4.8 g/dL Lipase 36 12-53 U/L Assessment/Plan Assessment/Plan Assessment Acute abdominal pain Acute cholecystitis Plan Admit the patient to [facility] to the hospitalist Surgical consultation NPO Rocephin/Flagyl Pain management Continue treatment per orders. Plan discussed with: Patient My Orders Orders - ISAAC SHORE Procedure Category Date Status Time * Surgical Consult CONS 10/10/24 Transmitted Ceftriaxone 1gm/50ml PHA 10/11/24 In Process D5w (Rocephin) 09:00 Metronidazole PHA 10/10/24 In Process 500mg/100ml (Flagyl 22:00 Basic Metabolic Panel LAB 10/11/24 Verified 04:00 Admit ADMIT 10/10/24 Transmitted 19:43 Ondansetron Hcl PHA 10/10/24 In Process (Zofran) 19:45 Complete Blood Count LAB 10/11/24 Verified 04:00 Npo (Nothing By DIET 10/11/24 Transmitted Mouth) Diet Breakfast Condition: Stable BENIGNO 10/10/24 In Process 19:43 Bedrest With Bathroom BENIGNO 10/10/24 In Process Privileg 19:43 Morphine Sulfate PHA 10/10/24 In Process Injection 19:45 Date of Service: Oct 10, 2024 Billing Provider: ISAAC SHORE Common Visit Codes: [id number] INP/OBS CARE (HIGH) ISAAC SHORE Oct 10, 2024 21:33
[2024-10-10] MEDS: metroNIDAZOLE 500MG/100ML 100 ML IV SCH (21:35)
[2024-10-11] VITALS (7 sets, daily range): BP systolic 101–109; BP diastolic 59–67; PULSE 68–81; RESP 16–19; TEMP 97.7–98.1; O2SAT 96–100
[2024-10-11 05:43] LABS: Basophils # (auto) 0 10 ^3/uL (0-0.2); Basophils % (auto) 0.7 % (0.0-2.0); Eosinophils # (auto) 0.1 10 ^3/uL (0-0.8); Eosinophils % (auto) 2.3 % (0.0-7.0); Hematocrit 43.4 % (41.0-53.0); Hemoglobin 14.7 g/dL (13.5-17.5); Lymphocytes # (auto) 2.3 10 ^3/uL (0.4-5.4); Lymphocytes % (auto) 37.3 % (10.0-50.0); Mean Corpuscular Hemoglobin 30.8 pg (28.0-32.0); Mean Corpuscular Volume 90.7 fL (80.0-100.0); Monocytes # (auto) 0.5 10 ^3/uL (0-1.3); Neutrophils # (auto) 3.1 10 ^3/uL (1.6-8.6); Neutrophils % (auto) 51.7 % (37.0-80.0); Platelet Count (auto) 274 10^3/uL (140-450); Red Blood Cells 4.79 10^6/uL (4.5-5.90); Red Cell Distribution Width 13.3 % (11.8-14.3); White Blood Cell 6.1 10^3/uL (4.4-10.8)
[2024-10-11 05:54] LABS: Anion Gap 6 (5-15); Carbon Dioxide 27 mmol/L (20-31); Chloride 106 mmol/L (98-107); Sodium 139 mmol/L (136-145)
[2024-10-11 05:55] LABS: Calcium 9.1 mg/dL (8.7-10.4)
[2024-10-11 06:00] LABS: BUN/Creatinine Ratio 19.4 (10.0-20.0); Blood Urea Nitrogen 19 mg/dL (9-23); Glucose 94 mg/dL (74-106)
[2024-10-11] MEDS: cefTRIAXone 1GM/50ML D5W 50 ML IV SCH (12:20)
--- NOTE | 2024-10-11 13:08 | DVHINCON2 ---
Date of service: Oct 11, 2024 History of Present Illness 39-year-old male with a known history of gallstones now complaining of epigastric abdominal pain associated with nausea for past three days. Patient denies any fevers or chills. Past Medical History None Past Surgical History None Family History: Patient reports no known family medical history. Family History Noncontributory Social History Reports marijuana use. Rare alcohol. Denies any IV drug use Allergies: Coded Allergies: NO KNOWN ALLERGIES (Unverified , 04/13/19) Home Meds No Active Prescriptions or Reported Meds Current Medications Current Medications Medications (Trade) Dose Ordered Sig/Sinai Route PRN Reason Start Time Stop Time Status Last Admin Ceftriaxone Sodium 50 ml @ 100 mls/hr DAILY@09 IV 10/11/24 09:00 10/11/24 12:20 Metronidazole 100 ml @ 100 mls/hr Q8HR IV 10/10/24 22:00 10/11/24 05:44 Ondansetron HCl (Zofran) 4 mg Q4HP PRN IV NAUSEA / VOMITING 10/10/24 19:45 Morphine Sulfate 2 mg Q4HPRN PRN IV SEVERE PAIN (7-10 PAIN SCALE) 10/10/24 19:45 Vital Signs Vital Signs Date Time Temp Pulse Resp B/P (MAP) Pulse Ox O2 Delivery O2 Flow Rate FiO2 10/11/24 09:35 97.9 68 16 101/61 (74) 100 97.9 10/11/24 00:36 Room Air* 0 21 Physical Exam GEN: Age-appropriate male in no acute distress. Alert. HEENT: Normocephalic atraumatic. Moist mucous membranes. Anicteric sclerae. CV: RRR Respiratory: CTAB ABD: Minimal epigastric tenderness to palpation without guarding or rebound. Nondistended. Abdominal ultrasound: There are gallstones. Common bile duct is 0.4 cm. No pericholecystic fluid. Labs/Diagnostic Data Labs Test 10/11/24 04:48 10/10/24 16:12 10/10/24 16:02 Range/Units White Blood Count 6.1 4.4-10.8 10^3/uL Red Blood Count 4.79 4.5-5.90 10^6/uL Hemoglobin 14.7 13.5-17.5 g/dL Hematocrit 43.4 41.0-53.0 % Mean Corpuscular Volume 90.7 80.0-100.0 fL Mean Corpuscular Hemoglobin 30.8 28.0-32.0 pg Mean Corpuscular Hemoglobin Concent 34.0 32.0-36.0 g/dL Red Cell Distribution Width 13.3 11.8-14.3 % Platelet Count 274 140-450 10^3/uL Mean Platelet Volume 7.2 6.9-10.8 fL Neutrophils (%) (Auto) 51.7 37.0-80.0 % Lymphocytes (%) (Auto) 37.3 10.0-50.0 % Monocytes (%) (Auto) 8.0 0.0-12.0 % Eosinophils (%) (Auto) 2.3 0.0-7.0 % Basophils (%) (Auto) 0.7 0.0-2.0 % Neutrophils # (Auto) 3.1 1.6-8.6 10 ^3/uL Lymphocytes # (Auto) 2.3 0.4-5.4 10 ^3/uL Monocytes # (Auto) 0.5 0-1.3 10 ^3/uL Eosinophils # (Auto) 0.1 0-0.8 10 ^3/uL Basophils # (Auto) 0 0-0.2 10 ^3/uL Nucleated Red Blood Cells 0.0 % Sodium Level 139 136-145 mmol/L Potassium Level 4.0 3.5-5.1 mmol/L Chloride Level 106 98-107 mmol/L Carbon Dioxide Level 27 20-31 mmol/L Anion Gap 6 5-15 Blood Urea Nitrogen 19 9-23 mg/dL Creatinine 0.98 0.700-1.30 mg/dL Glomerular Filtration Rate Calc 99 >90 mL/min BUN/Creatinine Ratio 19.4 10.0-20.0 Serum Glucose 94 74-106 mg/dL Calcium Level 9.1 8.7-10.4 mg/dL Urine Color Yellow Yellow Urine Clarity Clear Clear Urine pH 5.5 5.0-9.0 Urine Specific [place] 1.027 1.001-1.035 Urine Protein Trace H Negative Urine Ketones Trace Negative Urine Blood Negative Negative /uL Urine Nitrite Negative Negative Urine Bilirubin Negative Negative Urine Urobilinogen Normal Negative mg/dL Urine Leukocyte Esterase Negative Negative /uL Urine RBC 1 0 - 3 /hpf Urine Microscopic WBC 1 0-3 /HPF Urine Squamous Epithelial Cells Few <5 /hpf Urine Bacteria None seen None Seen /hpf Urine Mucus Few None Seen Urine Glucose Normal Normal mg/dL Prothrombin Time 10.4 9.3-11.8 sec Prothrombin Time INR 0.98 0.9-1.15 Activated Partial Thromboplast Time 27.1 24.5-34.5 SEC Total Bilirubin 0.4 0.2-1.0 mg/dL Aspartate Amino Transferase (AST) 32 13-40 U/L Alanine Aminotransferase (ALT) 40 7-40 U/L Alkaline Phosphatase 104 46-116 U/L Total Protein 7.1 5.7-8.2 g/dL Albumin 4.3 3.2-4.8 g/dL Lipase 36 12-53 U/L Assessment 1. Cholecystitis Plan/Recommendation 1. Laparoscopic cholecystectomy possible open surgery Informed consent: The surgery and its risks including but not limited to i nfection, bleeding requiring possible blood transfusion with the risk of hepatitis or HIV infection, possible open surgery, possible cystic duct leak or retained common bile duct stone requiring further intervention such as an ERCP, possible perioperative IA or stroke were explained to the patient. All questions were answered to his satisfaction. He expressed verbal understanding and wished to proceed with the surgery. Plan discussed with: Patient DAVION ATKINSON MD Oct 11, 2024 13:08
[2024-10-11] MEDS ORDERED: SUCCINYLCHOLINE CHLORIDE 20 MG/ML 10ML VIAL IV ONE (13:20)
[2024-10-11] MEDS ORDERED: fentaNYL CITRATE 100 MCG/2 ML VL ONE (13:23)
[2024-10-11] MEDS ORDERED: LIDOCAINE W/ EPINEPHRINE 1% 20ML VIAL ONE (13:33)
--- NOTE | 2024-10-11 14:07 | DVHPN2 ---
Subjective Patient continues to have abdominal pain in epigastrium , belt like pain. Patient is not having any more nausea/vomiting. Reviewed: H&P Changes from previous H/P or p: No Changes General: Per HPI Objective Vitals Vital Signs Date Time Temp Pulse Resp B/P (MAP) Pulse Ox O2 Delivery O2 Flow Rate FiO2 10/11/24 09:35 97.9 68 16 101/61 (74) 100 97.9 10/11/24 00:36 Room Air* 0 21 Intake/Output Intake and Output 10/11/24 07:00 Intake Total 750 ml Balance 750 ml Intake IV Total 750 ml Exam GEN: Healthy appearing, well-developed, NAD. HEENT: NC/AT; MMM. CV: RRR, no m/r/g. LUNGS: CTAB, no w/r/c. ABD: Bowel sounds hypoactive, abdominal tenderness in the epigastrium and left upper quadrant. EXT: skin Warm, well perfused. no rashes. No clubbing, cyanosis, or edema. NEURO: Ambulating with no limitations. No focal deficits. Medications Current Medications Medications Dose Ordered Sig/Sinai Route Start Time Stop Time Status Last Admin Dose Admin Ceftriaxone Sodium 50 ml @ 100 mls/hr DAILY@09 IV 10/11/24 09:00 10/11/24 12:20 100 MLS/HR Metronidazole 100 ml @ 100 mls/hr Q8HR IV 10/10/24 22:00 10/11/24 05:44 100 MLS/HR Ondansetron HCl 4 mg Q4HP PRN IV 10/10/24 19:45 Morphine Sulfate 2 mg Q4HPRN PRN IV 10/10/24 19:45 Laboratory Results Laboratory Tests 10/11/24 04:48 Chemistry Test 10/10/24 16:02 10/11/24 04:48 Albumin 4.3 g/dL (3.2-4.8) Calcium Level 10.0 mg/dL (8.7-10.4) 9.1 mg/dL (8.7-10.4) Total Protein 7.1 g/dL (5.7-8.2) Coagulation Test 10/10/24 16:02 Prothrombin Time 10.4 sec (9.3-11.8) Prothrombin Time INR 0.98 (0.9-1.15) Activated Partial Thromboplast Time 27.1 SEC (24.5-34.5) Lipid panel Test 10/10/24 16:02 Lipase 36 U/L (12-53) LFT Test 10/10/24 16:02 Alanine Aminotransferase (ALT) 40 U/L (7-40) Alkaline Phosphatase 104 U/L (46-116) Aspartate Amino Transferase (AST) 32 U/L (13-40) Total Bilirubin 0.4 mg/dL (0.2-1.0) Urinalysis Test 10/10/24 16:12 Urine Color Yellow (Yellow) Urine Clarity Clear (Clear) Urine pH 5.5 (5.0-9.0) Urine Specific [place] 1.027 (1.001-1.035) Urine Protein Trace (Negative) H Urine Ketones Trace (Negative) Urine Blood Negative /uL (Negative) Urine Nitrite Negative (Negative) Urine Bilirubin Negative (Negative) Urine Urobilinogen Normal mg/dL (Negative) Urine Leukocyte Esterase Negative /uL (Negative) Urine RBC 1 /hpf (0 - 3) Urine Microscopic WBC 1 /HPF (0-3) Urine Squamous Epithelial Cells Few /hpf (<5) Urine Bacteria None seen /hpf (None Seen) Urine Mucus Few (None Seen) Urine Glucose Normal mg/dL (Normal) Labs and/or images reviewed: Labs reviewed by me, Image(s) reviewed by me Assessment/Plan Assessment/Plan Acute abdominal pain Acute cholecystitis - CT abdomen 10/10/24: Hepatomegaly. No cholelithiasis there is gallbladder wall thickening and possible pericholecystic fluid. Acute cholecystitis can not be excluded and right upper quadrant ultrasound is recommended for follow-up. - RUQ ultrasound 10/10/24: Gallstones, gallbladder wall thickening and positive Colon's sign suspicious for acute cholecystitis. Additionally, Adenomyomatosis of the gallbladder -continue antibiotics IV -GI prophylaxis -surgery consulted -pain control p.r.n. NPO DVT prophylaxis-Lovenox subQ GI prophylaxis PPI IV daily Med surge Full code Plan discussed with: Patient Date of Service: Oct 11, 2024 Billing Provider: ELLE LANDEROS MD Common Visit Codes: [id number] INP/OBS CARE(HIGH) ELLE LANDEROS MD Oct 11, 2024 14:07
[2024-10-11] MEDS ORDERED: ROCURONIUM 10MG/ML 10ML VIAL IV ONE (14:26)
[2024-10-11] MEDS ORDERED: ONDANSETRON HCL 4 MG/2 ML VIAL ONE (14:27)
[2024-10-11] MEDS ORDERED: DexAMETHasone SOD PHOS 10MG/1ML VIAL INJ ONE (14:27)
[2024-10-11] MEDS ORDERED: MEPERIDINE HCL (25 MG/ML) 1ML VIAL ONE (14:29)
[2024-10-11] MEDS ORDERED: ePHEDrine SULFATE 50 MG/ML AMP ONE (14:33)
[2024-10-11] MEDS ORDERED: SUGAMMADEX 200mg/2ml Vial (100MG/ML) IV ONE (14:55)
--- NOTE | 2024-10-11 15:11 | DVHOP2 ---
Operative Report - 2 Report Details Date: 10/11/24 Preop Diagnosis: Cholecystitis Postop Diagnosis: Same Surgeon: Homer Rodrigues MD Driver License Examiner: None Anesthesiologist: Dr. Bueno Anesthesia: General, Local Drains: Done Consent: The surgery and its risks including but not limited to infection, bleeding requiring possible blood transfusion with the risk of hepatitis or HIV infection, possible open surgery, possible perioperative ND or stroke, possible cystic duct leak or retained common bile duct stone requiring further intervention such as an ERCP were explained to the patient. All questions were answered to his satisfaction. He expressed verbal understanding and wished to proceed with the surgery. Complications: None Estimated Blood Loss: 20 mL Fluids: 600 mL Name of Procedure Performed Laparoscopic cholecystectomy Procedure Details Procedure Details: After induction of general anesthesia, patient's abdomen was prepped and draped in standard surgical fashion. A small infraumbilical incision was made and this incision was taken through the abdominal wall down to the fascia which was opened sharply. Peritoneum was then bluntly divided gaining access to the intra-abdominal cavity. Interrupted 0 Vicryl sutures were placed through the fascial incision and using an open technique, Gregory trocar was introduced and secured using the Vicryl sutures. Abdomen was then insufflated to 15 mmHg and camera was inserted. Visual examination of the intestine under the fascial incision appeared normal without injury. Under direct visualization, a 5 mm bladeless trocar was placed in the subxiphoid region and two additional 5 mm bladeless trocars were placed in the right upper quadrant all under direct visualization. Examination of the right upper quadrant revealed edematous and distended gallbladder. The gallbladder was then grasped and retracted in a cephalad direction. Infundibulum was retracted laterally and careful blunt dissection was performed to identify the cystic duct which appeared normal in size. Cystic duct was then clipped and divided using Endoclips without complication. The cystic artery was located just next to the cystic duct and this was also clipped and divided using Endoclips without complication. Gallbladder was then removed from the liver bed using electrocautery and there was no bile or stone spillage during the maneuver. Gallbladder was then removed from the abdominal cavity using an endo pouch bag and sent off the surgical field. Abdomen was then re-insufflated and hemostasis in the liver bed was achieved using electrocautery. Right upper quadrant was then well irrigated until fluid was clear. Trocars were then removed under direct visualization as the abdomen was deflated. Additional interrupted 0 Vicryl sutures were placed through the infraumbilical fascial incision and all sutures were tied down closing off the infraumbilical fascia. Surgical sites were irrigated injected with 20 mL of 1% lidocaine with epinephrine. Skin incisions were closed using amilcar. Surgical sites were cleaned and dried and dressings were applied. Sponge, needle, instrument count at the end of the case were reported to be correct by the nursing staff. The patient tolerated procedure well. Patient was then extubated and transferred to recovery in stable condition. Specimen: Gallbladder Condition Stable Disposition Still a Patient HOMER RODRIGUES MD Oct 11, 2024 15:11
[2024-10-11] MEDS ORDERED: MEPERIDINE HCL (25 MG/ML) 1ML VIAL IV PRN (15:15)
[2024-10-11] MEDS: ONDANSETRON HCL 4 MG/2 ML VIAL IV ONE (15:15)
[2024-10-11] MEDS ORDERED: HYDROmorphone HCL 2 MG/ML VL/or syr IV PRN (15:15)
[2024-10-11] MEDS ORDERED: ACETAMINOPHEN IV 1000 MG/100ML (10MG/ML) IV PRN (15:15)
[2024-10-11] MEDS: SODIUM CHLORIDE 0.9% 1,000 ML IV SCH (17:41)
[2024-10-11] MEDS: MORPHINE SULFATE INJ 2 MG/ml SYRG IV PRN (20:38)
[2024-10-12 01:00] VITALS: BP 104/64; PULSE 88; RESP 20; TEMP 98; O2SAT 99
[2024-10-12 05:00] VITALS: BP 123/83; PULSE 77; RESP 20; TEMP 98.1; O2SAT 99
[2024-10-12 07:22] LABS: Basophils # (auto) 0 10 ^3/uL (0-0.2); Basophils % (auto) 0.1 % (0.0-2.0); Eosinophils # (auto) 0 10 ^3/uL (0-0.8); Hematocrit 42.4 % (41.0-53.0); Hemoglobin 14.5 g/dL (13.5-17.5); Lymphocytes # (auto) 1.1 10 ^3/uL (0.4-5.4); Mean Corpuscular Hemoglobin 30.7 pg (28.0-32.0); Mean Corpuscular Hgb Conc. 34.2 g/dL (32.0-36.0); Mean Corpuscular Volume 89.8 fL (80.0-100.0); Monocytes # (auto) 0.5 10 ^3/uL (0-1.3); Monocytes % (auto) 5.1 % (0.0-12.0); Neutrophils # (auto) 8.7 10 ^3/uL (1.6-8.6); Neutrophils % (auto) 83.8 % (37.0-80.0); Nucleated Red Blood Cells % 0.2 %; Platelet Count (auto) 272 10^3/uL (140-450); Red Blood Cells 4.72 10^6/uL (4.5-5.90); Red Cell Distribution Width 13.1 % (11.8-14.3); White Blood Cell 10.3 10^3/uL (4.4-10.8)
[2024-10-12 07:52] LABS: Alanine Aminotransferase 144 U/L (7-40); Alkaline Phosphatase 102 U/L (46-116); Anion Gap 7 (5-15); Calcium 9.1 mg/dL (8.7-10.4); Carbon Dioxide 26 mmol/L (20-31); Chloride 104 mmol/L (98-107); Potassium 3.9 mmol/L (3.5-5.1); Sodium 137 mmol/L (136-145)
[2024-10-12 07:53] LABS: Aspartate Aminotransferase 94 U/L (13-40); BUN/Creatinine Ratio 14.7 (10.0-20.0); Blood Urea Nitrogen 14 mg/dL (9-23); Glucose 106 mg/dL (74-106)
[2024-10-12 07:54] LABS: Albumin 4.2 g/dL (3.2-4.8)
[2024-10-12 07:55] LABS: Bilirubin, Total 0.6 mg/dL (0.2-1.0); Total Protein 6.7 g/dL (5.7-8.2)
[2024-10-12 09:00] VITALS: BP 105/70; PULSE 81; RESP 17; TEMP 97.9; O2SAT 98
--- NOTE | 2024-10-12 12:33 | DVHPN2 ---
Progress Note - Dictate Date Seen: Oct 12, 2024 Medical Necessity Reason Pt with a Central, PICC or Fol: No Subjective E: no major events o/n. no complaints. sameera clear liquid diet. vital signs Vital Sign Date Time Temp Pulse Resp B/P (MAP) Pulse Ox O2 Delivery O2 Flow Rate FiO2 10/12/24 09:00 97.9 81 17 105/70 (82) 98 97.9 10/12/24 07:58 Room Air* 0 21 Total Intake and Output 10/11/24 10/11/24 10/12/24 15:00 23:00 07:00 Intake Total 100 ml 100 ml 1250 ml Output Total 1050 ml 500 ml Balance 100 ml -950 ml 750 ml medications Current Medications Medications Dose Ordered Sig/Sinai Route Start Time Stop Time Status Last Admin Dose Admin Ceftriaxone Sodium 50 ml @ 100 mls/hr DAILY@09 IV 10/11/24 09:00 10/12/24 08:23 100 MLS/HR Metronidazole 100 ml @ 100 mls/hr Q8HR IV 10/10/24 22:00 10/12/24 05:37 100 MLS/HR Ondansetron HCl 4 mg Q4HP PRN IV 10/10/24 19:45 Morphine Sulfate 2 mg Q4HPRN PRN IV 10/10/24 19:45 10/12/24 08:37 2 MG Sodium Chloride 1,000 ml @ 75 mls/hr [id number] IV 10/11/24 15:15 10/11/24 17:41 75 MLS/HR objective GEN: NAD ABD: surgical dressings clean and dry. laboratory and microbiology Laboratory Tests 10/12/24 06:08 Test 10/12/24 06:08 Range/Units Serum Glucose 106 74-106 mg/dL Assessment/Plan A: 1. s/p lap cholecystectomy POD #1 doing well. P: 1. stable from surgery POV 2. if discharged, f/u next week to clinic. call [phone] for appt. Plan discussed with: Patient DAVION ATKINSON MD Oct 12, 2024 12:32
[2024-10-12 13:00] VITALS: BP 99/62; PULSE 77; RESP 17; TEMP 98.1; O2SAT 94
[2024-10-12] MEDS: BISACODYL 5 MG EC TAB PO ONE (14:05)
[2024-10-12] MEDS ORDERED: ZOFR4T PO (15:05)
[2024-10-12] MEDS ORDERED: AUG875T PO (15:05)
--- NOTE | 2024-10-12 15:23 | DVHDS2 ---
Discharge Summary Date of Admission Oct 10, 2024 at 19:43 Date of Discharge: Oct 12, 2024 Labs/Diagnostic Data: Laboratory Results Test 10/12/24 06:08 10/10/24 16:12 10/10/24 16:02 White Blood Count 10.3 10^3/uL (4.4-10.8) Red Blood Count 4.72 10^6/uL (4.5-5.90) Hemoglobin 14.5 g/dL (13.5-17.5) Hematocrit 42.4 % (41.0-53.0) Mean Corpuscular Volume 89.8 fL (80.0-100.0) Mean Corpuscular Hemoglobin 30.7 pg (28.0-32.0) Mean Corpuscular Hemoglobin Concent 34.2 g/dL (32.0-36.0) Red Cell Distribution Width 13.1 % (11.8-14.3) Platelet Count 272 10^3/uL (140-450) Mean Platelet Volume 7.0 fL (6.9-10.8) Neutrophils (%) (Auto) 83.8 % (37.0-80.0) Lymphocytes (%) (Auto) 11.0 % (10.0-50.0) Monocytes (%) (Auto) 5.1 % (0.0-12.0) Eosinophils (%) (Auto) 0.0 % (0.0-7.0) Basophils (%) (Auto) 0.1 % (0.0-2.0) Neutrophils # (Auto) 8.7 10 ^3/uL (1.6-8.6) Lymphocytes # (Auto) 1.1 10 ^3/uL (0.4-5.4) Monocytes # (Auto) 0.5 10 ^3/uL (0-1.3) Eosinophils # (Auto) 0 10 ^3/uL (0-0.8) Basophils # (Auto) 0 10 ^3/uL (0-0.2) Nucleated Red Blood Cells 0.2 % Sodium Level 137 mmol/L (136-145) Potassium Level 3.9 mmol/L (3.5-5.1) Chloride Level 104 mmol/L (98-107) Carbon Dioxide Level 26 mmol/L (20-31) Anion Gap 7 (5-15) Blood Urea Nitrogen 14 mg/dL (9-23) Creatinine 0.95 mg/dL (0.700-1.30) Glomerular Filtration Rate Calc 103 mL/min (>90) BUN/Creatinine Ratio 14.7 (10.0-20.0) Serum Glucose 106 mg/dL (74-106) Calcium Level 9.1 mg/dL (8.7-10.4) Total Bilirubin 0.6 mg/dL (0.2-1.0) Aspartate Amino Transferase (AST) 94 U/L (13-40) Alanine Aminotransferase (ALT) 144 U/L (7-40) Alkaline Phosphatase 102 U/L (46-116) Total Protein 6.7 g/dL (5.7-8.2) Albumin 4.2 g/dL (3.2-4.8) Urine Color Yellow (Yellow) Urine Clarity Clear (Clear) Urine pH 5.5 (5.0-9.0) Urine Specific [place] 1.027 (1.001-1.035) Urine Protein Trace (Negative) Urine Ketones Trace (Negative) Urine Blood Negative /uL (Negative) Urine Nitrite Negative (Negative) Urine Bilirubin Negative (Negative) Urine Urobilinogen Normal mg/dL (Negative) Urine Leukocyte Esterase Negative /uL (Negative) Urine RBC 1 /hpf (0 - 3) Urine Microscopic WBC 1 /HPF (0-3) Urine Squamous Epithelial Cells Few /hpf (<5) Urine Bacteria None seen /hpf (None Seen) Urine Mucus Few (None Seen) Urine Glucose Normal mg/dL (Normal) Prothrombin Time 10.4 sec (9.3-11.8) Prothrombin Time INR 0.98 (0.9-1.15) Activated Partial Thromboplast Time 27.1 SEC (24.5-34.5) Lipase 36 U/L (12-53) Other Laboratory Tests 10/12/24 06:08 Brief Hx & Hospital Course: hpi: 39-year-old male presents for evaluation of abdominal pain. Patient reports being diagnosed with cholecystitis yesterday but decided to leave against medical advice. Today he returns with complaints of constant epigastric abdominal pain that radiates occasionally to his right upper quadrant with associated nausea and vomiting. With denies fever or chills. Denies diarrhea. No other acute complaints reported. course: on admit CT abdomen 10/10/24 Hepatomegaly. No cholelithiasis there is gallbladder wall thickening and possible pericholecystic fluid. Acute cholecystitis can not be excluded and right upper quadrant ultrasound is recommended for follow-up. RUQ ultrasound 10/10/24: Gallstones, gallbladder wall thickening and positive Colon's sign suspicious for acute cholecystitis. Additionally, Adenomyomatosis of the gallbladder. started on IV abx ceftriaxone, protonix, pain control prn, surgery consulted. taken to OR on 10/11/24 for laporascopic cholecystectomy. on POD1 patient toelrating CLD diet. doing well. stable BP, although low, asymptomatic. stable to discharge with plan below. disagnosis: acute cholecystitis, s/p laporascopic cholecystectomy; acute intractable abdominal pain, resolved; transaminitis s/p cholecystectomy; neutrophilia, resolved; intravascular volume depletion; tachycardia, resolved; discharge plan: - continue augmentin 875mg 2x/day for x 5 days - take as needed zofran (subligual dissolving) for nausea - take as needed tylenol , then ibuprofen for pain control. - full liquid diet - for x1 week - follow-up with surgery. call [phone] for appt. - follow-up with PCP to discuss discharge. recommend repeat cmp to trend transaminitis. - continue other home medications. return [facility] if pain return/worsening and/or if nausea/vomit develops and is intractable. Condition at Discharge: Fair Final Diagnosis/Problems List acute cholecystitis, s/p laporascopic cholecystectomy; acute intractable abdominal pain, resolved; transaminitis s/p cholecystectomy; neutrophilia, resolved; intravascular volume depletion; tachycardia, resolved; Discharge Disposition: Home Discharge Instruct/Medications Diet: See Comment Diet comment: full liquid diet Activity: Light activity Follow Up/Referral: PCP, surgery Discharge Statement: "Patient was advised to return to the ER or call 911 if any headaches, dizziness, shortness of breath, chest pain, abdominal pain, bleeding, fevers, or worsening of medical condition. Patient was counseled about treatment plan, medications, possible side effects, patientverbalized understanding. All questions were answered to the best of my ability. This discharge took greater then 30 minutes in planning, reviewing documentation, counseling the patient, and discussing with other team members." ASSESSMENT ASSESSMENT Assessment acute cholecystitis, s/p laporascopic cholecystectomy; acute intractable abdominal pain, resolved; transaminitis s/p cholecystectomy; neutrophilia, resolved; intravascular volume depletion; tachycardia, resolved; Date of Service: Oct 12, 2024 Billing Provider: ELLE LANDEROS MD Common Visit Codes: 56858-NZW/OBS DISCH DAY >30min ELLE LANDEROS MD Oct 12, 2024 15:22
[2024-10-12 15:57] VITALS: TEMP 36.7
[2024-10-13] MEDS ORDERED: ACE3T PO (18:43)
== END 2024-10-12 16:18 | disposition home or self-care (01) | DRG 419 ==
LOC: ER 14:56 → OVERFLOW 19:43 → CENTRAL 10-11 16:33
PROVIDERS: ADMIT Student in an Organized Health Care Education/Training Program; ATTEND Student in an Organized Health Care Education/Training Program
PROC: 0FT44ZZ Resection of Gallbladder, Percutaneous Endoscopic Approach (ICD-10-PCS; principal; 2024-10-11 14:17)
DX: K81.0 Acute cholecystitis (principal); K82.8 Other specified diseases of gallbladder; F17.210 Nicotine dependence, cigarettes, uncomplicated; E86.9 Volume depletion, unspecified; R00.0 Tachycardia, unspecified; R74.01 Elevation of levels of liver transaminase levels
CPT/HCPCS: 36415; 80048; 80053; 81001; 83690; 85025; 85610; 85730; 96374; 96375; G0378; J0330; J1100; J2405; J2470; J3490

== ENCOUNTER 2024-10-13 15:10 | Emergency (ER) | payer MEDICAID ==
[~2024-10-13] VITALS: Ht 172.7 cm; Wt 75.8 kg
[~2024-10-13 15:10] MED LIST: AUG875T PO; ZOFR4T PO
--- NOTE | 2024-10-13 15:31 | ECG ---
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
[2024-10-13 15:57] LABS: Basophils # (auto) 0 10 ^3/uL (0-0.2); Basophils % (auto) 0.6 % (0.0-2.0); Eosinophils # (auto) 0.1 10 ^3/uL (0-0.8); Eosinophils % (auto) 1.8 % (0.0-7.0); Hematocrit 42.2 % (41.0-53.0); Hemoglobin 14.2 g/dL (13.5-17.5); Lymphocytes # (auto) 2.1 10 ^3/uL (0.4-5.4); Lymphocytes % (auto) 38.4 % (10.0-50.0); Mean Corpuscular Hemoglobin 30.3 pg (28.0-32.0); Mean Corpuscular Hgb Conc. 33.7 g/dL (32.0-36.0); Mean Corpuscular Volume 89.9 fL (80.0-100.0); Monocytes # (auto) 0.5 10 ^3/uL (0-1.3); Monocytes % (auto) 8.3 % (0.0-12.0); Neutrophils # (auto) 2.8 10 ^3/uL (1.6-8.6); Neutrophils % (auto) 50.9 % (37.0-80.0); Nucleated Red Blood Cells % 0.1 %; Platelet Count (auto) 273 10^3/uL (140-450); White Blood Cell 5.6 10^3/uL (4.4-10.8)
[2024-10-13 16:07] LABS: Albumin 4.1 g/dL (3.2-4.8); Alkaline Phosphatase 115 U/L (46-116); Anion Gap 6 (5-15); BUN/Creatinine Ratio 17.9 (10.0-20.0); Blood Urea Nitrogen 17 mg/dL (9-23); Calcium 9.5 mg/dL (8.7-10.4); Carbon Dioxide 30 mmol/L (20-31); Chloride 105 mmol/L (98-107); Glucose 81 mg/dL (74-106); Lipase 41 U/L (12-53); Sodium 141 mmol/L (136-145)
[2024-10-13 16:08] LABS: Total Protein 6.6 g/dL (5.7-8.2)
[2024-10-13 16:10] LABS: Alanine Aminotransferase 102 U/L (7-40); Aspartate Aminotransferase 42 U/L (13-40); Bilirubin, Total 0.3 mg/dL (0.2-1.0); Potassium 3.4 mmol/L (3.5-5.1)
[2024-10-13] MEDS: IOHEXOL 300 MG/ML 100ML BOTTLE IJ ONE (16:27)
--- NOTE | 2024-10-13 17:13 | DVH ---
INDICATION: CHEST/ BACK PAIN. POSSIBLE PE S/P CHOLECYSTECTOMY COMPARISON: None TECHNIQUE: Multidetector CTA of the chest was performed of the chest with 100 cc of intravenous contr ast. PULMONARY ANGIOGRAPHY PROTOCOL was utilized using a bolus-tracking technique centered on the jim n pulmonary artery. Axial, coronal and sagittal multiplanar and MIP reformats were performed. Sagittal and coronal multi planar MIP images were submitted for interpretation. Radiation Dose Information: CT Dose: CTDI volume is 8.88 mGy. Dose-length product is 594.12 mGy*cm Omnipaque 350: 100 mL The dose indicators for CT are the volume Computed Tomography (CT) Dose Index (CTDIvol) and the Dose Length Product (DLP), and are measured in units of mGy and mGy-cm, respectively. These indicators are not patient dose, but values generated from the CT scanner acquisition factors. The report includes radiation exposure data for exposures received during this examination. Findings: Pulmonary artery: Normal caliber of the pulmonary artery. No large central or large segmental pulmo nary embolism. Lower neck: Normal thyroid. Lungs: No focal consolidation, pulmonary mass, or suspicious pulmonary nodule. Heart/Vascular Structures: Normal heart size. Normal caliber and enhancement of the aorta. Lymph Nodes: No adenopathy Pleura: No pleural effusion or significant pneumothorax. Musculoskeletal: No acute osseous abnormality. Upper abdomen: Patient is status post cholecystectomy. IMPRESSION: 1. No pulmonary embolism. 2. No no findings of pulmonary artery hypertension. 3. No pulmonary infiltrates or pleural effusions. 4. Patient is status post cholecystectomy.
--- NOTE | 2024-10-13 17:48 | ED.PDOC ---
HPI Comments 39-year-old male presents with a chief complaint of chest pain x 2 days s/p cholecystectomy. Patient reports that he is having pleuritic chest pain for the past x 2 days. Patient just had a cholecystectomy 2 days ago. Patient reports that the chest pain is sharp in nature and radiates to his back. Patient denies SOB, headache, nausea, vomiting, or diaphoresis. No other symptoms or modifying factors present at this time. Vital signs were stable at arrival. Chief Complaint: Back Pain Time Seen by MD: 17:45 Primary Care Provider: ? Reviewed Notes: Nurses Notes, Medications, Allergies Allergies: Coded Allergies: NO KNOWN ALLERGIES (Unverified , 04/13/19) Home Meds Active Scripts Ondansetron Odt 4MG Tab (ZOFRAN PO) 4 Mg Tb, 4 MG PO TIDPRN PRN for 4 Days, #12 TAB 0 Refills ODT TAB-DISSOLVE IN MOUTH, THEN SWALLOW Prov:ELLE LANDEROS MD 10/12/24 Amoxicillin & Pot Clavulanate (AUGMENTIN TABLET) 875 Mg Tb, 875 MG PO BID for 5 Days, #10 TAB 0 Refills Prov:ELLE LANDEROS MD 10/12/24 Information Source: Patient, Friend Mode of Arrival: Ambulatory Severity: Moderate Timing: Days Duration: Since onset Prehospital treatment: None Location: Substernal Radiation: Back Quality: Sharp Onset: At Rest Cardiac Risk Factors: None PE Risk Factors: Recent Surgery (MAGGY) History of: None Past Medical History PAST MEDICAL HISTORY: Gallstones Surgical History: Cholecystectomy Family History Family History: Unknown Social History Smoker: Cigarettes Alcohol: Denies ETOH Use Drugs: Marijuana, Methamphetamine Lives In: Home Constitutional: denies: chills, diaphoresis, fatigue, fever, malaise, sweats, w eakness, others EENTM: denies: blurred vision, double vision, ear bleeding, ear discharge, ear drainage, ear pain, ear ringing, eye pain, eye redness, hearing loss, mouth pain, mouth swelling, nasal discharge, nose bleeding, nose congestion, nose pain, photophobia, tearing, throat pain, throat swelling, voice changes, others Respiratory: denies: cough, hemoptysis, orthopnea, SOB at rest, shortness of breath, SOB with excertion, stridor, wheezing, others Cardiovascular: reports: chest pain; denies: dizzy spells, diaphoresis, Dyspnea on exertion, edema, irregular heart beat, left arm pain, lightheadedness, palpitations, PND, syncope, others Gastrointestinal: denies: abdomen distended, abdominal pain, blood streaked bowels, constipated, diarrhea, dysphagia, difficulty swallowing, hematemesis, melena, nausea, poor appetite, poor fluid intake, rectal bleeding, rectal pain, vomiting, others Genitourinary: denies: burning, dysuria, flank pain, frequency, hematuria, incontinence, penile discharge, penile sore, pain, testicle pain, testicle swelling, urgency, others Neurological: denies: dizziness, fainting, headache, left sided numbness, left sided weakness, numbness, paresthesia, pre-existing deficit, right sided numbness, right sided weakness, seizure, speech problems, tingling, tremors, weakness, others Musculoskeletal: denies: back pain, gout, joint pain, joint swelling, muscle pain, muscle stiffness, neck pain, others Integumetry: denies: bruises, change in color, change in hair/nails, dryness, laceration, lesions, lumps, rash, wounds, others Allergic/Immunocompromised: denies: Difficulty Healing, Frequent Infections, Hives, Itching, others Hematologic/Lymphatic: denies: anemia, blood clots, easy bleeding, easy bruising, swollen glands, others Endocrine: denies: excessive hunger, excessive sweating, excessive thirst, excessive urination, flushing, intolerance to cold, intolerance to heat, unexplained weight gain, unexplained weight loss, others Psychiatric: denies: anxiety, bipolar disorder, depression, hopeless, panic disorder, schizophrenia, sleepless, suicidal, others All Other Systems: Reviewed and Negative Physical Exam General Appearance: Moderate Distress ([id number] distress due to chest pain any and back pain concerns. Patient declined any pain medication.), Normal HEENT: Normal ENT Inspection, Pharynx Normal, TMs Normal Neck: Full Range of Motion, Non-Tender, Normal, Normal Inspection Respiratory: Chest Non-Tender, Lungs Clear, No Accessory Muscle Use, No Respiratory Distress, Normal Breath Sounds, Other (Auscultation bilateral lung dave. Unremarkable evaluation.) Cardiovascular: No Edema, No JVD, No Murmur, No Gallop, Normal Peripheral Pulses, Regular Rate/Rhythm Breast Exam: Deferred Gastrointestinal: No Organomegaly, Non Tender, No Pulsatile Mass, Normal Bowel Sounds, Soft Genitalia: Deferred Pelvic: Deferred Rectal: Deferred Extremities: No calf tenderness, Normal capillary refill, Normal inspection, Normal range of motion, Non-tender, No pedal edema Musculoskeletal : Apperance: Normal Neurologic: Alert, No Motor Deficits, Normal Affect, Normal Mood, No Sensory Deficits Cerebellar Function: Normal Reflexes: Normal Skin: Dry, Normal Color, Warm Lymphatic: No Adenopathy Was a procedure done? Was a procedure done?: No CP Differential Dx Differential Diagnosis: A-fib, Angina, Atrial Dysrhythmia, AV Block 1st Degree, [place], Other (Pulmonary embolus, pneumonia, musculoskeletal pain) X-Ray, Labs, Meds, VS Vital Signs Date Time Temp Pulse Resp B/P (MAP) Pulse Ox O2 Delivery O2 Flow Rate FiO2 10/13/24 17:09 98.3 77 16 117/76 (90) 100 98.3 10/13/24 15:30 97.9 83 18 128/81 (97) 99 10/13/24 15:27 84 Lab Test 10/13/24 16:48 10/13/24 15:37 Range/Units Troponin I High Sensitivity 11 11 </=54 ng/L White Blood Count 5.6 # 4.4-10.8 10^3/uL Red Blood Count 4.70 4.5-5.90 10^6/uL Hemoglobin 14.2 13.5-17.5 g/dL Hematocrit 42.2 41.0-53.0 % Mean Corpuscular Volume 89.9 80.0-100.0 fL Mean Corpuscular Hemoglobin 30.3 28.0-32.0 pg Mean Corpuscular Hemoglobin Concent 33.7 32.0-36.0 g/dL Red Cell Distribution Width 13.0 11.8-14.3 % Platelet Count 273 140-450 10^3/uL Mean Platelet Volume 6.7 L 6.9-10.8 fL Neutrophils (%) (Auto) 50.9 37.0-80.0 % Lymphocytes (%) (Auto) 38.4 10.0-50.0 % Monocytes (%) (Auto) 8.3 0.0-12.0 % Eosinophils (%) (Auto) 1.8 0.0-7.0 % Basophils (%) (Auto) 0.6 0.0-2.0 % Neutrophils # (Auto) 2.8 1.6-8.6 10 ^3/uL Lymphocytes # (Auto) 2.1 0.4-5.4 10 ^3/uL Monocytes # (Auto) 0.5 0-1.3 10 ^3/uL Eosinophils # (Auto) 0.1 0-0.8 10 ^3/uL Basophils # (Auto) 0 0-0.2 10 ^3/uL Nucleated Red Blood Cells 0.1 % D-Dimer, Quantitative 0.50 H 0.0-0.49 mg/L FEU Sodium Level 141 136-145 mmol/L Potassium Level 3.4 L 3.5-5.1 mmol/L Chloride Level 105 98-107 mmol/L Carbon Dioxide Level 30 20-31 mmol/L Anion Gap 6 5-15 Blood Urea Nitrogen 17 9-23 mg/dL Creatinine 0.95 0.700-1.30 mg/dL Glomerular Filtration Rate Calc 103 >90 mL/min BUN/Creatinine Ratio 17.9 10.0-20.0 Serum Glucose 81 74-106 mg/dL Lactic Acid Level 1.9 0.4-2.0 mmol/L Calcium Level 9.5 8.7-10.4 mg/dL Total Bilirubin 0.3 0.2-1.0 mg/dL Aspartate Amino Transferase (AST) 42 H 13-40 U/L Alanine Aminotransferase (ALT) 102 H 7-40 U/L Alkaline Phosphatase 115 46-116 U/L Total Protein 6.6 5.7-8.2 g/dL Albumin 4.1 3.2-4.8 g/dL Lipase 41 12-53 U/L X-Ray, Labs, Meds, VS Comment All studies performed the ED were evaluated by me personally. Laboratories were unremarkable for any systemic process. Patient displayed mild elevated D-dimer. CT angio was unremarkable for any PE formation or intrapulmonary concerns. Patient seems to be experiencing musculoskeletal concerns. Advised patient utilize pain medication as needed for symptomatic relief as well as ice therapy. Time of 1ST Reevaluation: 18:41 Reevaluation 1ST: Unchanged Consultation: PCP Patient Education/Counseling: Diagnosis, Treatment, Prognosis Family Education/Counseling: Diagnosis, Treatment, Prognosis Departure 1 Departure Time of Disposition: 18:42 Impression: Primary Impression: Musculoskeletal pain Disposition: HOME / SELF CARE / HOMELESS Condition: Stable Additional Instructions: Advise patient utilize pain medication as needed for symptomatic relief. Patient should maintain follow up appointments with his surgeon as scheduled. e-Prescriptions Acetaminophen W/ Codeine (Tylenol W/Cod #3) 1 Tab Tb 1 TAB PO Q6HP PRN, #10 TAB Prov: KAMILAH ROGER PAC 10/13/24 Discharged With: Self, Friend Critical Care Note Critical Care Time?: No Stability Stability form required: No Heart Score Heart Score: Heart Score Response (Comments) Value History Slightly Suspicious 0 EKG Normal 0 Age <45 0 Risk Factors No known risk factors 0 Troponin Normal limit 0 Total 0 I personally scribed for KAMILAH ROGER PAC ([email or web address]) on 10/13/24 at 17:48. Electronically submitted by Ayo Jones ([email or web address]). KAMILAH ROGER PAC Oct 13, 2024 17:48
[2024-10-13] MEDS ORDERED: ACE3T PO (18:43)
[2024-10-13 18:52] VITALS: BP 130/86; PULSE 76; RESP 18; TEMP 97.4; O2SAT 99
== END 2024-10-13 18:52 | disposition home or self-care (01) ==
LOC: ER 15:10
DX: M79.18 Myalgia, other site (principal); R07.89 Other chest pain; R07.81 Pleurodynia; F17.210 Nicotine dependence, cigarettes, uncomplicated; Z90.49 Acquired absence of other specified parts of digestive tract; Z79.899 Other long term (current) drug therapy
CPT/HCPCS: 36415; 71275; 80053; 83605; 83690; 84484; 85025; 85379; 93005; 99285; Q9967

== ENCOUNTER 2024-10-30 00:02 | Emergency (ER) | payer MEDICAID ==
[~2024-10-30] VITALS: Ht 172.7 cm; Wt 76.5 kg
[~2024-10-30 00:02] MED LIST changes: +ACE3T PO
[2024-10-30 00:15] VITALS: BP 92/57; PULSE 99; RESP 12; O2SAT 99
--- NOTE | 2024-10-30 00:50 | ED.PDOC ---
History of Present Illness HPI Comments 39y M who presents to the ED for chief complaint of abdominal pain. Pt states he has been having abdominal for the past 1 hours. Pt states 1 hours prior he slipped and fell on to the floor and states he heard a ''tear." Pt states he had gallbladder removed 15 days prior and states he recently had surgical amilcar removed recently and states he felt something inside tear. Pt in the, states he is having epigastric abdominal pain, non-radiating, rating the pain 6/10, with no associated exacerbating or relieving factors. Pt denies any associated symptoms and is noted to be in no noted respiratory distress. Pt otherwise has noted stable vitals in the ED. Chief Complaint: Abdominal Pain Time Seen by MD: 00:38 Primary Care Provider: ? Reviewed Notes: Nurses Notes Allergies: Coded Allergies: NO KNOWN ALLERGIES (Unverified , 04/13/19) Home Meds Active Scripts Acetaminophen W/ Codeine (Tylenol W/Cod #3) 1 Tab Tb, 1 TAB PO Q6HP PRN, #10 TAB Prov:KAMILAH ROGER PAC 10/13/24 Ondansetron Odt 4MG Tab (ZOFRAN PO) 4 Mg Tb, 4 MG PO TIDPRN PRN for 4 Days, #12 TAB 0 Refills ODT TAB-DISSOLVE IN MOUTH, THEN SWALLOW Prov:ELLE LANDEROS MD 10/12/24 Amoxicillin & Pot Clavulanate (AUGMENTIN TABLET) 875 Mg Tb, 875 MG PO BID for 5 Days, #10 TAB 0 Refills Prov:ELLE LANDEROS MD 10/12/24 Information Source: Patient Mode of Arrival: Ambulatory Severity: Moderate Vital Signs Vital Signs Date Time Temp Pulse Resp B/P (MAP) Pulse Ox O2 Delivery O2 Flow Rate FiO2 10/30/24 00:15 97.7 99 12 92/57 (69) 99 Physical Exam General: Awake, alert and oriented. No acute distress. Skin: Skin in warm, dry and intact. Appropriate color for ethnicity. HEENT: The head is normocephalic and atraumatic. Conjunctivae are clear without exudates or hemorrhage. Sclera is non-icteric. EOM are intact. No signs of nystagmus. Eyelids are normal in appearance without swelling or lesions. Oral mucosa is pink and moist Neck: The neck is supple with normal range of motion. No JVD. Cardiac: Heart rate and rhythm are normal. No murmurs, gallops, or rubs are auscultated. Respiratory: No signs of respiratory distress. Lung sounds are clear in all lobes bilaterally without rales, ronchi, or wheezes. Abdominal: Abdomen is soft, non-tender without distention. Bowel sounds are present and normoactive in all four quadrants. Surgical scars noted, well healed. Extremities: Upper and lower extremities are atraumatic in appearance without deformity or edema. Neurological: The patient is awake, alert and oriented to person, place, and time with normal speech. Speech is clear. There is no facial asymmetry. Psychiatric: Appropriate mood and affect. Good judgement and insight. No visual or auditory hallucinations. Review of Systems: As stated in HPI Past Medical History PAST MEDICAL HISTORY: Gallstones Surgical History: Cholecystectomy Family History Family History: Unknown Social History Smoker: Cigarettes Alcohol: Denies ETOH Use Drugs: Marijuana, Methamphetamine Lives In: Home Was a procedure done? Was a procedure done?: No Differential Dx Considerations may include: Differential diagnoses considered include: Abdominal aortic aneurysm, OK, esophageal rupture, intestinal obstruction, mesenteric ischemia, perforated viscus or solid organ rupture, CHF with hepatomegaly, pneumonia, abscess, appendicitis, biliary disease, diverticulitis, gastritis, gastroenteritis, hepatitis, hernia, inflammatory bowel disease, pancreatitis, peptic ulcer disease, urinary tract infection, ureteral colic, constipation, GERD, irritable syndrome, abdominal wall pain, nonspecific abdominal pain, herpes zoster. X-Ray, Labs, Meds, VS Vital Signs Date Time Temp Pulse Resp B/P (MAP) Pulse Ox O2 Delivery O2 Flow Rate FiO2 10/30/24 00:15 97.7 99 12 92/57 (69) 99 Time of 1ST Reevaluation: 01:35 Reevaluation 1ST: N/A Patient Education/Counseling: Diagnosis, Treatment Family Education/Counseling: No Family Present Departure 1 Departure Time of Disposition: 00:48 Impression: Primary Impression: Acute abdominal pain Disposition: 01 HOME / SELF CARE / HOMELESS Condition: Stable Additional Instructions: INSTRUCCIONES DE WADE DE Urgencias Instrucciones: Madeleine atentamente todas las instrucciones proporcionadas en ayaan paquete. Aunque le hayan dado el wade del Departamento de Emergencias, esto no significa que tenga un "certificado de buena miguel". Hoy no se walton realizado ningn diagnstico definitivo para hattie sntomas. Es posible que ests en proceso de desarrollar jenaro enfermedad grave. Es por eso que debe regresar al servicio de urgencias sin falta si presenta algn sntoma nuevo o que empeora (especialmente si hattie sntomas incluyen dolor en el pecho, dificultad para respirar, mas dolor abdominal, fiebre, dolor de panda, confusin, dificultad para wesley o caminar). Tambin es muy importante que consulte a un mdico de atencin primaria dentro de los prximos 3 a 5 grimm para realizar un seguimiento. Si no puede conseguir jenaro kaiser, regrese al servicio de urgencias para jenaro nueva evaluacin. Dolor abdominal: instrucciones de cuidado Imagen de los cuatro cuadrantes del abdomen. Descripcin general El dolor abdominal tiene muchas causas posibles. Algunas no son graves y mejoran por s solas en unos grimm. Otras requieren ms pruebas y tratamiento. Si el dolor contina o empeora, es necesario volver a examinarlo y es posible que necesite ms pruebas para averiguar qu es lo que est mal. Es posible que necesite jenaro ciruga para corregir el problema. No ignore los sntomas nuevos, stephanie fiebre, nuseas y vmitos, problemas para orinar, dolor que empeora y mareos. Estos pueden ser signos de un problema ms grave. Si no mejora, es posible que necesite ms pruebas o tratamiento. El mdico lo walton examinado cuidadosamente, dmitriy pueden surgir problemas ms adelante. Si nota algn problema o sntomas nuevos, busque tratamiento mdico de inmediato . El seguimiento mdico es jenaro parte fundamental de wall tratamiento y wall seguridad. Asegrese de programar y acudir a todas las citas, y llame a wall mdico si tiene problemas. Tambin es jenaro buena idea saber los resultados de hattie pruebas y llevar jenaro lista de los medicamentos que giovany. Kiss Setter Hand puedes cuidarte en casa? Descansa hasta que te sientas mejor. Para prevenir la deshidratacin, efe abundante lquido. Elija agua y otros lquidos ivana hasta que se sienta mejor. Si tiene jenaro enfermedad renal, cardaca o heptica y debe limitar los lquidos, consulte con wall mdico antes de aumentar la cantidad de lquidos que hussein. Cuando sientas ganas de comer, empieza con pequeas cantidades. No tomes alcohol, cafena ni alimentos picantes, calientes o con alto contenido de grasa rosa roberto o dos grimm. Evite los medicamentos antiinflamatorios stephanie la aspirina, el ibuprofeno (Advil, Motrin) y el naproxeno (Aleve). Pueden causar malestar estomacal. Hable con wall mdico si giovany aspirina a diario por otro problema de miguel. Cundo debes pedir ayuda? Llame al 911 en cualquier momento en que crea que puede necesitar atencin de emergencia. Por ejemplo, llame si: Te desmayaste (perdiste el conocimiento). Tiene heces de color marrn o con abdirahman tanya. Vomitas tanya o lo que parecen posos de caf. Tienes un dolor intenso en el vientre. Llame a wall mdico ahora o busque atencin mdica inmediata si: El dolor empeora, especialmente si se concentra en jenaro elizabeth determinada del abdomen. Tiene fiebre nueva o ms wade. Las heces son negras y parecen alquitrn, o tienen vetas de tanya. Tienes sangrado vaginal inesperado. Tiene sntomas de jenaro infeccin del tracto urinario. Estos pueden incluir: Dolor al orinar. Orinar con ms frecuencia de lo habitual. Tanya en la orina. Se siente mareado o aturdido, o siente que se puede desmayar. Preste atencin a los cambios en wall miguel y asegrese de comunicarse con wall mdico si: No ests mejorando stephanie esperabas. Crditos para el dolor abdominal: instrucciones de cuidado Actualizado al: 2023 Autor: [facility] [place], [facility] Comments 39-year-old male presented with abdominal pain after ground level fall. No peritoneal signs, tenderness or bruising on abdominal exam. No evidence of acute abdomen at this time. patient is well appearing. Imaging and labs not warranted at this time. Patient is afebrile. Patient is not hypotensive. Low suspicion for acute hepatobiliary disease (including acute cholecystitis, acute pancreatitis, PUD (including perforation), acute infectious process (pneumonia, hepatitis, pyelonephritis), acute appendicitis, vascular catastrophe, bowel obstructions, viscous perforation. Presentation not consistent with other acute, emergent causes of abdominal pain at this time. Patient well-appearing, nontoxic. Advised prompt follow-up with PCP, return to the ED with any new, worsening or concerning symptoms. I reviewed the following notes from the pt's past medical encounters: Encounter October 08, 2024 for acute cholecystitis The following tests were ordered, and results were reviewed by me: (See diagnostic results section) The following test were independently interpreted by me: N/A Additional information was gathered from interviewing the following independent historians: (N/A) I reviewed and agreed with the following test results read by other providers: N/A I discussed treatments and results with medical personnel and: N/A Decision regarding hospitalization or escalation of hospital level of care: Risks and benefits of admission for further treatment of patient's condition was considered however due to patient's stable condition patient will be discharged to follow up closely or return to care for worsening of condition or inability to follow up. Critical Care Note Critical Care Time?: No Stability Stability form required: No Heart Score Heart Score: Heart Score Response (Comments) Value History N/A 0 EKG N/A 0 Age N/A 0 Risk Factors N/A 0 Troponin N/A 0 Total 0 I personally scribed for BIN MUSTAFA MD ([email or web address]) on 10/30/24 at 01:01. Electronically submitted by Charles Resendiz ([facility]). BIN MUSTAFA MD Oct 30, 2024 00:50
[2024-10-30] MEDS ORDERED: KETOROLAC TROMETH 30 MG/ML 1ML VIAL IM ONE (01:00)
== END 2024-10-30 00:51 | disposition left against medical advice (07) ==
LOC: ER 00:02
DX: R10.13 Epigastric pain (principal); F17.210 Nicotine dependence, cigarettes, uncomplicated; Z90.49 Acquired absence of other specified parts of digestive tract